=== PATIENT | male | born 1955 | race Two or more races ===

== ENCOUNTER 2016-08-26 08:12 | Inpatient (IN) | payer OTHER ==
--- NOTE | 2016-08-22 15:08 | HP ---
HISTORY AND PHYSICAL: DATE OF OFFICE VISIT: 08/22/16 DATE OF SURGERY: 08/26/16 SURGEON: Abi Knox MD. PROCEDURE: Right total hip arthroplasty. CHIEF COMPLAINT: Right hip pain. HISTORY OF PRESENT ILLNESS: Mr. Ley is a 61-year-old gentleman with complaints of right hip larry n. He has failed conservative management and has elected to proceed with a right total hip arthropl asty, which is scheduled for 08/26/[address] Knox. PAST MEDICAL HISTORY: 1. Right lower extremity cellulitis. 2. Bleeding gastric ulcers. 3. Hypertension. 4. Coronary artery disease. 5. High cholesterol. 6. Mcdowell's esophagus. 7. Peripheral vascular disease. PAST SURGICAL HISTORY: Stent placement. CURRENT MEDICATIONS: 1. Doxycycline 100 mg twice daily. 2. Nome 1-2 tabs twice a day as needed.. 3. Nystatin/triamcinolone ointment twice daily. 4. Toprol XL 25 mg once a day. 5. Multivitamin once a day. 6. Lipitor 40 mg q.h.s. 7. Tylenol PM q.h.s. 8. Tylenol 325 mg as needed twice a day. 9. Ferrous sulfate 324 mg once a day. 10. Flonase 50 micrograms/ACT one internasal puff daily. 11. Lisinopril 10 mg once a day. 12. Hydrochlorothiazide 25 mg once a day. 13. Omeprazole 40 mg once a day. 14. Glucosamine chondroitin 500 complex once a day. 15. Sucralfate 1 gm 4x a day. ALLERGIES: None. FAMILY HISTORY: Diabetes; heart disease; gastric, colon and breast cancer; melanoma. SOCIAL HISTORY: This is a 61-year-old gentleman who lives with the sister. He does not smoke. He denies use of drugs or alcohol. REVIEW OF SYSTEMS: A complete 14-point review of systems is reviewed with the patient and all is ne gative or noncontributory. PHYSICAL EXAMINATION GENERAL: He is well developed, well nourished, in no acute distress. VITAL SIGNS: He stands 5 feet and 8 inches tall, weighs 163 pounds. His blood pressure is 121/72, heart rate 77. HEENT: Normocephalic, atraumatic. NECK: Supple. No palpable lymph nodes. Trachea is midline. CARDIO: Regular rate and rhythm. Strong S1 and S2. PULMONARY: Lungs are clear to auscultation bilaterally. ABDOMEN: Soft, nontender, nondistended. NEUROLOGIC: Cranial nerves II through XII are intact. He is alert and oriented x3. MUSCULOSKELETAL: Right lower extremity, the skin is intact. He has a limited range of motion with internal and external rotation of his right hip. Lower extremity muscle group strengths were intact at 5/5. He has 2+ dorsalis pedis pulses. There is some redness of his right lower leg, which was not extend past the knee. There is no swelling, drainage, or warmth. He walks with an antalgic typ e gait favoring his right hip. ASSESSMENT AND PLAN: Mr. Ley is a 61-year-old gentleman with complaints of right hip pain. He has failed conservative management and has elected to proceed with a right total hip arthroplasty, which is scheduled for 08/26/[address] Knox discussed the risks and benefits of the s urgery at today's visit and all of his questions were answered. Percocet was sent to his pharmacy f or postoperative pain control. DVT prophylaxis has not been determined. We will discuss this with hospital medicine on the day of surgery, since he has a history of bleeding gastric ulcers which req uired hospitalization a year and half ago, with blood transfusion. So, prior to study any Coumadin we will first consult then. We will have him follow up with Dr. Knox in clinic 2 weeks after the s urgery. BASIL ROJAS [id number]/[facility] #: [id number]
[~2016-08-26 08:12] MED LIST: Buffered Lidocaine 1% SYR 3ML* 3 ML/SYR SYRINGE INTRADERM ONE; Famotidine IV* 10 MG/ML 2 ML (20 mg) IV ONE
[2016-08-26] MEDS ORDERED: ceFAZolin 2 GM PREMIX(*) 2 GM/50 ML BAG IVPB ONE (08:14)
[2016-08-26] MEDS ORDERED: Famotidine IV* 10 MG/ML 2 ML (20 mg) ONE (08:14)
[2016-08-26] MEDS ORDERED: fentaNYL* 50 MCG/ML 2 ML VIAL (100 MCG VIAL) ONE (09:05)
[2016-08-26] MEDS ORDERED: Midazolam* 1 MG/ML 5 ML VIAL (5 MG) ONE (09:05)
[2016-08-26] MEDS ORDERED: Morphine PF AMP (0.5MG/ML)* 5 MG/10 ML AMP ONE (11:14)
[2016-08-26] MEDS ORDERED: KETAMINE HCL* 50 MG/ML 10 ML VIAL ONE (11:21)
[2016-08-26] MEDS ORDERED: Lidocaine 2% PF * 5 ML VIAL ONE (11:39)
[2016-08-26] MEDS ORDERED: diPHENhydraMINE IV* 50 MG/ML 1 ml VIAL (BENADRYL) ONE (11:39)
[2016-08-26] MEDS ORDERED: Ketorolac INJ* 30 MG/ML 1 ML VIAL ONE (11:39)
[2016-08-26] MEDS ORDERED: Ondansetron INJ* 2 MG/ML VIAL ONE (11:39)
[2016-08-26] MEDS ORDERED: Propofol* 10 MG/ML 20 ML BTL IV PUSH ONE (11:39)
[2016-08-26] MEDS ORDERED: Dexamethasone IV* 4 MG/ML 1 ML (4 MG) ONE (11:39)
[2016-08-26] MEDS ORDERED: Midazolam* 1 MG/ML 2 ML VIAL (2 MG) ONE ×3 (11:48→12:06)
[2016-08-26] MEDS ORDERED: diPHENhydraMINE IV* 50 MG/ML 1 ml VIAL (BENADRYL) IV PRN (14:17)
[2016-08-26] MEDS ORDERED: Morphine INJ* 2 MG/ML 1 ML SYRINGE IV PRN (14:17)
[2016-08-26] MEDS ORDERED: Ondansetron TAB* 4 MG PO PRN (14:17)
[2016-08-26] MEDS ORDERED: Acetaminophen TAB* 325 MG PO PRN ×2 (14:17→14:26)
[2016-08-26] MEDS ORDERED: Bisacodyl SUPP* 10 MG SUPP PR PRN (14:17)
[2016-08-26] MEDS ORDERED: Polyethylene Glycol 3350* 17 GM PACKET PO PRN (14:17)
[2016-08-26] MEDS ORDERED: Magnesium Hydroxide LIQ* 30 ML UDC PO PRN (14:17)
[2016-08-26] MEDS ORDERED: oxyCODONE/Acetamin 5/325 MG* TAB PO PRN ×3 (14:17→14:36)
[2016-08-26] MEDS ORDERED: oxyCODONE TAB* 5 MG TAB PO PRN (14:17)
[2016-08-26] MEDS ORDERED: HYDROmorphone* 1 MG/ML 1 ML SYR IV PRN (14:26)
[2016-08-26] MEDS ORDERED: DiMENhydriNATE IV* 50 MG/ML VIAL IV PUSH PRN (14:26)
[2016-08-26] MEDS ORDERED: Ondansetron INJ* 2 MG/ML VIAL IV PRN (14:31)
[2016-08-26] MEDS ORDERED: Naloxone* 0.4 MG/ML 1 ML VIAL IV PRN (14:31)
[2016-08-26] MEDS ORDERED: Nalbuphine* 20 MG/ML 1 ML VIAL IV PRN (14:31)
--- NOTE | 2016-08-26 14:55 | RAD ---
INDICATION: Status post total right hip replacement surgery. COMPARISON: Comparison is made with a prior x-ray study of the right hip from July 24, 2016. TECHNIQUE: An AP view of the pelvis and frontal and lateral images of the right hip were obtained. FINDINGS: The patient is status post total right hip replacement surgery. The bones and prostheses are in normal alignment. There is a small amount of air within the surrounding soft tissues consistent with the patient's recent surgery. There is a catheter within the urinary bladder. There is moderate osteoarthritic change in the left hip. IMPRESSION: STATUS POST TOTAL RIGHT HIP REPLACEMENT SURGERY.
[2016-08-26] MEDS ORDERED: ceFAZolin 1 GM in Dextrose (*) 1 GM/50 ML BAG IVPB SCH ×2 (15:00→18:00)
--- NOTE | 2016-08-26 16:25 | RAD ---
Indication: RIGHT total hip replacement. Comparison: June 27, 2016 Technique: LEFT lateral decubitus crosstable AP RIGHT hip 1320 hours. Report: Prosthetic acetabular component and femoral test fit/reamer component in place. No periprosthetic fracture evident. Subcutaneous emphysema. IMPRESSION: Intraoperative control film.
[2016-08-26] MEDS ORDERED: Warfarin TAB(*) 6 MG PO SCH (17:00)
[2016-08-26] MEDS: Sucralfate TAB* 1 GM PO SCH ×2 (17:20→20:57)
[2016-08-26] MEDS: ceFAZolin 1 GM in Dextrose (*) 1 GM/50 ML BAG IVPB SCH (18:11)
[2016-08-26] MEDS: Docusate CAP* 100 MG PO SCH (19:33)
[2016-08-26] MEDS: Ibuprofen TAB* 600 MG PO SCH (19:33)
[2016-08-26] MEDS: Atorvastatin* 40 MG TAB PO SCH (19:33)
[2016-08-26] MEDS: DOXYcycline CAP(*) 100 MG PO SCH (19:34)
--- NOTE | 2016-08-26 20:22 | CONS ---
CONSULTATION REPORT: DATE OF CONSULT: 08/26/16 ATTENDING PHYSICIAN WHILE IN THE HOSPITAL: Dr. Lake Mackay (report is being dictated by Bryce Garcia NP). PRIMARY CARE PROVIDER: Dr. Edgard Banks. REQUESTING PHYSICIAN FOR CONSULTATION: Dr. Knox. REASON FOR MEDICAL CONSULTATION: Evaluation and medical management of comorbid medical conditions. HISTORY OF PRESENT ILLNESS: I refer you to Dr. Knox's H and P for further details. In short, Mr. Ley is a 61-year-old male patient. He has a history of peptic ulcer disease, hypertension, history of hyperlipidemia, anxiety, NE, Mcdowell's esophagus, and peripheral vascular disease and recent history of a presumed bleeding ulcer back in October of this year, also found to have a Nadja albicans infection on the gastric ulcer and which he follows with Dr. Dennis for. He comes in to orthopedic services today because he has been complaining for sometime some right hip pain, it is becoming more severe. He has been having difficulty walking and sits in a wheelchair most of the time. He has been failing conservative managements, so it was felt that he would benefit from a total hip replacement. He underwent the procedure today and he was evaluated in the PACU. The patient says he feels drowsy only. He denies specifically having any chest pain or shortness of breath. He denies any abdominal discomfort. He denies having any recent black or tarry stools. He denies having any abdominal discomfort and he says that he feels drowsy, this is his biggest complaint. He denies having any pain in his hips. He carries a significant past medical history and because of this, we are asked to evaluate in consult. PAST MEDICAL HISTORY: Significant for: 1. Peptic ulcer disease. 2. Peripheral vascular disease. 3. Hypertension. 4. CAD. 5. NE. 6. Hyperlipidemia. 7. Osteoarthritis. 8. Mcdowell's esophagus. PAST SURGICAL HISTORY: He has had cardiac catheterization with 2 stents. HOME MEDICATIONS: According to the preop list include: 1. Percocet 1 to 2 tablets every 4 hours as needed. 2. Carafate 1 g p.o. q.i.d. 3. Omeprazole 40 mg daily. 4. Nystatin/triamcinolone cream one application topically b.i.d. 5. Multivitamin one tablet daily. 6. Metoprolol XL 25 mg daily. 7. Lisinopril 10 mg daily. 8. Hydrochlorothiazide 25 mg daily. 9. Glucosamine 2 tablets p.o. b.i.d. 10. Flonase one spray both nares daily. 11. Ferrous sulfate 325 mg p.o. daily. 12. Doxycycline 100 mg p.o. b.i.d. 13. Tylenol PM 2 tablets p.o. at bedtime. 14. Lipitor 40 mg at bedtime. 15. Tylenol 2 tablets p.o. b.i.d. as needed. ALLERGIES TO MEDICATIONS: No known drug allergies. FAMILY HISTORY: Both his parents were diabetics, both had hypertension. SOCIAL HISTORY: He does not smoke. He does not drink. He lives with his sister. Surrogate decision maker is his sister. REVIEW OF SYSTEMS: There is no documented fever. He denied having any significant weight change. There is no double vision. He denies having any ear discharge. He denies having any rhinorrhea. There is no sore throat. No thyroid enlargement. He denies having any chest pain. There is no orthopnea. There is no nocturnal dyspnea. He denies having any abdominal discomfort. He denies having any nausea or vomiting. He denies any dysuria. No frequency. There was no loss of consciousness. No pruritus. No skin ulcerations. Review of 14 systems completed, all others negative. PHYSICAL EXAM: Vital Signs: Blood pressure 107/62, pulse 52, respirations 18, O2 saturation 99% on 3 L, temperature 97.2. Generally, at this time, Mr. Ley is a 61-year-old male patient. He does not appear to be in any acute distress. He is awake and he is alert. He is just drowsy but he follows commands appropriately. HEENT: Head is atraumatic, normocephalic. Eyes: Pupils are reactive to light. Sclerae are anicteric, not pale. Neck was supple. Throat; oral mucosa appeared to be moist. No oropharyngeal erythema. Heart: Sounds S1 and S2. Regular rate and rhythm. He is bradycardic around 58. No murmurs, rubs, or gallops. Lungs: Clear to auscultation. No wheezes, rales, or rhonchi. Abdomen: Soft, flat, and nontender. Bowel sounds were present. Extremities: Pulses were 2+ throughout. Distal CSM checks are intact to bilateral lower extremities. He is in a hip abductor pillow. Neurologically , he is awake and he is alert. He does follow commands. He does fall asleep easily but awakens and follows commands appropriately. Case Picker are equal. Tongue is midline. No gross focal deficits. Skin is intact with the exception he has got incision to the right hip which is covered with ABD dressings, clean , dry, and intact. DIAGNOSTIC STUDIES/LAB DATA: Labs preoperatively revealed WBC 5.8, RBC of 5.29 , hemoglobin 16.5, hematocrit of 48, platelet count 157. INR 0.90. Sodium of 138, potassium 3.7, chloride 99, bicarb 31, BUN 17, creatinine 0.91, glucose 93. Urine preop was negative. Urine culture was negative preop. He had a preop stress test according to Dr. Mckeon's notes which showed no evidence of ischemia. There was a preop echo shows EF of 55-60%. Preop EKG shows a normal sinus rhythm with a PAC. No ST elevation or T-wave inversions. He does appear to have intraventricular conduction delay. He also had a chest x -ray which showed no active cardiopulmonary disease. He had an EGD done in December which showed a healed ulcer. Old medical records are reviewed. ASSESSMENT AND PLAN: Mr. Ley is a 61-year-old male patient coming into the orthopedic services today for an elective right total hip. My recommendations at this point are: 1. Status post right total hip, I will defer the management to Dr. Knox and her team. 2. Peptic ulcer disease with recent gastric ulcer. Again, there is concern because the patient is going to be going on Coumadin for short period of time postoperatively to prevent DVTs. However, because the ulcer has healed, I believe we could proceed with caution using the Coumadin to prevent DVTs. We need to monitor him closely. Should there be any signs of melena or concerns for bleeding then obviously we would need to reevaluate the ulcer but he has been stable now since December. I will continue with Carafate and his PPI therapy. I do have a call placed to his [employer] to inform them because I think the risk of taking the Coumadin is lower than the risk of not taking it because I think he would be a much higher risk for having a DVT and PE postoperatively from the surgery like this, so I think we should proceed with the warfarin with careful monitoring on the patient. 3. Hypertension. His blood pressures here in the low 100 systolically, so I will hold his meds with exception of his beta-kush, I did write a hold parameters. 4. Coronary artery disease. Continue the statin and beta-kush. 5. History of hyperlipidemia. Continue statin therapy. 6. History of arthritis. Follow up with primary. 7. History of Mcdowell's esophagus. Continue his current medical regimen. He is on Carafate and PPI. 8. Peripheral vascular disease. Continue statin therapy. 9. Code status. Full code. 10. Fluids, electrolytes and nutrition. I would recommend a heart healthy diet. TIME SPENT: Time spent on this consult was approximately 60 minutes, greater than half time spent with [id number] with the patient obtaining my history and physical, the other half of the time spent going over the plan of care with the patient and implementing the plan of care. I discussed the plan of care with my attending, Dr. Mackay who is in agreement. BRYCE GARCIA NP CC: Dr. Edgard Banks; Dr. Knox * [id number]/[facility] #: [id number] FRANCY
[2016-08-26] MEDS ORDERED: TRIAMCINOLONE TOPICAL SCH (21:00)
[2016-08-26] MEDS ORDERED: NYSTATIN TOPICAL SCH (21:00)
[2016-08-27] MEDS: Triamcinolone 0.025% OINT * 15 GM TUBE TOPICAL SCH ×3 (00:08→19:22)
[2016-08-27] MEDS: Ibuprofen TAB* 600 MG PO SCH ×3 (01:44→13:44)
[2016-08-27] MEDS: ceFAZolin 1 GM in Dextrose (*) 1 GM/50 ML BAG IVPB SCH ×2 (02:01→09:46)
[2016-08-27] MEDS: Sucralfate TAB* 1 GM PO SCH ×4 (05:47→21:56)
[2016-08-27 05:59] LABS: Hematocrit 30 % (42-52); Hemoglobin 10.6 g/dl (14.0-18.0)
[2016-08-27 06:23] LABS: BUN/Creatinine Ratio 18.4 (8-20); Calcium 8.1 mg/dL (8.6-10.3); EGFR African American 93.8 (>60); EGFR Non-African American 72.9 (>60); Potassium 3.6 mmol/L (3.5-5.0)
[2016-08-27] MEDS ORDERED: Lactated Ringers 500 ml BAG* 500 ML IV ONE (06:28)
--- NOTE | 2016-08-27 07:38 | PN ---
Progress Note - Progress Note SOAP: Subjective: Pt. doing well, minimal pain. Low BP overnight. Objective: RLE - thigh soft, dressing c/d/i. distally +df/pf, full sens lt, 2+ dp pulse. Vital Signs: Temp Pulse Resp BP Pulse Ox 98.4 F 70 16 86/46 95 08/27/16 03:32 08/27/16 03:32 08/27/16 03:32 08/27/16 03:32 08/27/16 03:32 Laboratory Results - last 24 hr 08/27/16 08/27/16 08/27/16 05:28 05:28 05:28 Hgb 10.6 L Hct 30 L INR (Anticoag Therapy) 1.09 Sodium 133 Potassium 3.6 Chloride 99 L Carbon Dioxide 29 Anion Gap 5 BUN 19 Creatinine 1.03 Est GFR ( Amer) 93.8 Est GFR (Non-Af Amer) 72.9 BUN/Creatinine Ratio 18.4 Glucose 114 H Calcium 8.1 L Assessment: 61 yo M pod 1 s/p RTHA Plan: wbat with post hip precautions pt/ot 6 mg coumadin with lovenox plan home vs snf
[2016-08-27] MEDS ORDERED: Lactated Ringers 250 ml Bag* 250 ML IV SCH (07:45)
[2016-08-27] MEDS: Metoprolol Succinate XL TAB* 25 MG PO SCH (08:15)
[2016-08-27] MEDS: oxyCODONE/Acetamin 5/325 MG* TAB PO PRN ×3 (08:19→21:56)
--- NOTE | 2016-08-27 08:38 | OP ---
OPERATIVE REPORT: DATE OF OPERATION: 08/26/16 DATE OF : 51 SURGEON: Abi Knox MD SUPERVISOR WATER SOFTENER SERVICE: BASIL Turcios This obstetric assistant was used throughout the entire procedure including preparation, draping, retraction, manipulation of the leg, and wound closure. ANESTHESIOLOGIST: Naima Becker MD ANESTHESIA: Spinal. 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 OPERATIVE PROCEDURE: Right total hip arthroplasty. COMPLICATIONS: None. ESTIMATED BLOOD LOSS: 300 cc. SPECIMEN: Femoral head and acetabular reaming, sent to pathology. IMPLANTS USED: This is uncemented Fanny total hip hardware. For the acetabulum, a Trident Tritan ium 56E with 30 mm bone screw. For the liner, an MDM cementless liner 42E. For the stem, an Accola de TMZF 3.5 132-degree neck. For the head, a 28, +0 Biolox delta ceramic V40 femoral head. For the insert, a hinduism MDM X3 28/48/42E. BRIEF HISTORY/INDICATIONS: Mr. Ley is a 61-year-old gentleman with years of increasingly severe right hip pain. He failed conservative treatment activity modification, pain medication, antiinfla mmatories, physical therapy, and ambulatory assistive devices. His radiographs showed severe end-st age arthritis with bone-on- bone contact and deformation of the femoral head consistent with avascul ar necrosis and subchondral collapse. He elected to undergo right total hip arthroplasty due to con tinued pain and decreased quality of life. Informed consent was obtained from the patient. He understood the risks of the surgery included but were not limited to bleeding, infection, damage to nearby structures, continued pain, need for furt her surgery, intraoperative fracture, nerve palsy, hardware failure or loosening, dislocation, leg l ength discrepancy, stroke, heart attack, blood clot, and . He wished to proceed. INTRAOPERATIVE FINDINGS: Intraoperatively, the patient was noted to have severe end-stage arthritis with deformation of the femoral head and loss of the normal bony anatomy. He had complete loss of cartilage of the femoral head and acetabulum. DESCRIPTION OF PROCEDURE: Mr. Ley was identified in the preanesthesia unit. His right lower ext remity was marked as the correct operative side. Informed consent was signed and placed in the [facility]. The patient was taken to the operating room and placed under spinal anesthesia without difficult y. A Tamayo catheter was placed. The patient was placed in the left lateral decubitus position on t he Peg board. Right lower extremity was prepped and draped in the usual sterile fashion. Preop time -out was made to correctly identify the patient, side, and site. Appropriate perioperative antibioti cs were given within 1 hour of incision. A 14 cm posterior hip incision was made and carried down to the lateral fascial layer. The lateral fascial layer was then incised in line with the skin incision. A Charnley retractor was placed. The piriformis and conjoined tendons were identified. These were elevated off the posterolateral femur using electrocautery and tagged with two #5 Ethibond's. Next, electrocautery was used to make a andard posterolateral capsular flap and this was also tagged with two #5 Ethibond's. The hip was carefully dislocated. Deformity of the femoral head due to subchondral collapse and harman scular necrosis was noted. Lesser troch to the center of the femoral head was estimated at 55 mm. An oscillating saw was used to make the appropriate femoral neck cut and the the femoral head was se nt to pathology. After appropriate placement of retractors, the acetabulum was well visualized. Long-handled knife wa s used to remove any remaining labrum from the acetabular rim. The acetabulum was sequentially reame d up to a size 55. A bleeding bone bed was obtained. A size 56E Trident Tritanium acetabular cup w as chosen and impacted into the acetabulum. There was good stability as well as appropriate antever derek and abduction angle. A 130 mm screw was placed in the superoposterior quadrant for extra stability. An MDM cement with l iner 42E was chosen and impacted into the acetabulum. Stability of the liner was checked and rechec ked and noted to be stable. Attention was next turned to preparation of the proximal femur. A canal finder was used to enter th e proximal femur. The proximal femur was then sequentially broached up to a size 3.5. Size 3.5 bro ach had an excellent stability and appropriate anteversion. A trial 132-degree neck as well as a 28 , +0 head trial with the appropriate insert was chosen. The hip was reduced and taken through a ran ge of motion. The hip was stable in all positions. Lesser troch to the center of the femoral head measured 60 mm. This was deemed to be appropriate fo r leg length and soft tissue tension. The hip was carefully dislocated. All trials were carefully removed. Final stem chosen for the fem ur was an Accolade TMZF size 3.5 with 132-degree neck. This was impacted into the femur without dif ficulty. There was good stability. A 28, +0 Biolox delta ceramic femoral head as well as a 28/48/4 2E hinduism insert was chosen as the final implant. These were impacted onto the femoral neck wi thout difficulty. The hip was reduced and taken through a range of motion. The hip was stable in all positions. The hip was copiously irrigated with sterile saline. Previously tagged capsule and tendons were boris pproximated to the posterolateral femur through 2 trochanteric drill holes. The hip was once again copiously irrigated. Lateral fascia was reapproximated using an interrupted #1 Vicryl's. The rest of the incision was closed in a layered fashion using 0 and 2-0 Vicryl's. Skin was closed using run stephanie 3-0 Monocryl suture and Dermabond. Sterile Adaptic, 4x4s, and paper tapes were used to cover t he incision. The patient's anesthesia was reversed without difficulty. He was taken to the PACU in stable condition. Intended weightbearing will be weightbearing as tolerated with posterior hip pre cautions. Intended DVTs prophylaxis will be Coumadin. [id number]/[facility] #: [id number]
[2016-08-27] MEDS ORDERED: Hydrochlorothiazide TAB* 25 MG PO SCH (09:00)
[2016-08-27] MEDS ORDERED: Lisinopril TAB* 10 MG PO SCH (09:00)
[2016-08-27] MEDS ORDERED: Metoprolol Succinate XL TAB* 25 MG PO SCH (09:00)
[2016-08-27] MEDS: Multivitamins/Minerals TAB PO SCH (09:43)
[2016-08-27] MEDS: DOXYcycline CAP(*) 100 MG PO SCH ×2 (09:43→19:20)
[2016-08-27] MEDS: Omeprazole CAP* 20 MG PO SCH (09:44)
[2016-08-27] MEDS: Ferrous Sulfate TAB* 325 MG PO SCH (09:44)
[2016-08-27] MEDS: Docusate CAP* 100 MG PO SCH ×2 (09:45→19:20)
[2016-08-27] MEDS: Fluticasone NASAL SPRAY 50MCG* 16 gm SPRAY BTL BOTH NARES SCH (11:15)
[2016-08-27] MEDS: Nystatin CREAM* 30 GM TOPICAL SCH ×2 (11:18→19:22)
[2016-08-27] MEDS: Enoxaparin(*) 30 MG/0.3 ML SYR SUBCUT SCH (11:47)
--- NOTE | 2016-08-27 16:59 | PN ---
Subjective Date of Service: 08/27/16 Interval History: Patient seen and examined at bedside. Pt states that he is feeling well. Reports that pain is better controlled this afternoon. Denies fever, chills, shortness of breath, chest discomfort, N/V/D. Family History: Unchanged from Admission Social History: Unchanged from Admission Past Medical History: Unchanged from Admission Objective Active Medications: Acetaminophen (Tylenol Tab*) 650 mg PO Q4H PRN Reason: PAIN OR TEMPERATURE Atorvastatin Calcium (Lipitor*) 40 mg PO BEDTIME LAUREN Bisacodyl (Dulcolax Supp*) 10 mg [place] DAILY PRN Reason: constipation Diphenhydramine HCl (Benadryl Iv*) 12.5 mg IV Q6H PRN Reason: PRURITIS Docusate Sodium (Colace Cap*) 100 mg PO BID LAUREN Doxycycline Hyclate (Vibramycin Cap(*)) 100 mg PO BID LAUREN Enoxaparin Sodium (Lovenox(*)) 30 mg SUBCUT Q24H LAUREN Ferrous Sulfate (Ferrous Sulfate Tab*) 325 mg PO DAILY [facility] Fluticasone Propionate (Flonase Nasal [place] 50mcg*) 1 spray BOTH NARES DAILY [facility] Lactated Ringer's (Lactated Ringers 1000 Ml Bag*) 1,000 mls @ 100 mls/hr IV PER RATE LAUREN Lactulose (Lactulose*) 30 ml PO Q6H PRN Reason: constipation Magnesium Hydroxide (Milk Of Magnesia Liq*) 30 ml PO Q6H PRN Reason: constipation Metoprolol Succinate (Toprol Xl Tab*) 25 mg PO DAILY [facility] Morphine Sulfate (Morphine Inj (Syringe)*) 2 mg IV Q2H PRN Reason: PAIN Multivitamins/Minerals (Theragran/Minerals Tab*) 1 tab PO DAILY [facility] Nystatin (Nystatin Cream*) 1 applic TOPICAL BID [facility] Omeprazole (Prilosec Cap*) 40 mg PO DAILY [facility] Ondansetron HCl (Zofran Tab*) 4 mg PO Q6H PRN Reason: NAUSEA Oxycodone HCl (Roxycodone Tab*) 10 mg PO Q4H PRN Reason: SEVERE PAIN Oxycodone/Acetaminophen (Percocet 5/325 Tab*) 1 tab PO Q3H PRN Reason: PAIN - MODERATE Oxycodone/Acetaminophen (Percocet 5/325 Tab*) 2 tab PO Q3H PRN Reason: PAIN - MODERATE Pharmacy Profile Note (Coumadin Daily Reminder*) 1 note FOLLOW UP 1700 [facility] Polyethylene Glycol/Electrolytes (Miralax*) 17 gm PO DAILY PRN Reason: Constipation Sucralfate (Carafate*) 1 gm PO 0600,1100,1600,2100 [facility] Triamcinolone Acetonide (Triamcinolone 0.025% Oint *) 1 applic TOPICAL BID [facility] Warfarin Sodium (Coumadin Tab(*)) 6 mg PO ONCE@1700 ONE Vital Signs 08/26/16 08/26/16 08/26/16 17:59 19:39 19:58 Temperature 98.2 F 99.2 F Pulse Rate 70 71 Respiratory 14 15 15 Rate Blood Pressure 99/62 91/59 (mmHg) O2 Sat by Pulse 97 97 Oximetry 08/26/16 08/26/16 08/27/16 22:12 23:30 02:08 Temperature 100.0 F 98.2 F Pulse Rate 85 88 Respiratory 16 16 Rate Blood Pressure 97/57 80/48 82/56 (mmHg) O2 Sat by Pulse 96 95 Oximetry 08/27/16 08/27/16 08/27/16 02:13 03:32 07:15 Temperature 98.4 F Pulse Rate 70 Respiratory 16 16 Rate Blood Pressure 86/46 (mmHg) O2 Sat by Pulse 97 95 94 Oximetry 08/27/16 08/27/16 08/27/16 07:19 07:40 08:19 Temperature 98.3 F Pulse Rate 72 75 Respiratory 25 20 16 Rate Blood Pressure 87/50 86/48 (mmHg) O2 Sat by Pulse 94 Oximetry 08/27/16 08/27/16 08/27/16 10:19 11:31 14:07 Temperature 97.9 F Pulse Rate 75 Respiratory 18 19 16 Rate Blood Pressure 98/56 (mmHg) O2 Sat by Pulse 98 Oximetry 08/27/16 08/27/16 15:37 16:00 Temperature 98.1 F Pulse Rate 90 Respiratory 17 Rate Blood Pressure 90/56 (mmHg) O2 Sat by Pulse 96 96 Oximetry Oxygen Devices in Use Now: None Appearance: NAD, laying in bed Eyes: No Scleral Icterus, PERRLA Ears/Nose/Mouth/Throat: Mucous Membranes Moist Respiratory: Symmetrical Chest Expansion and Respiratory Effort, Clear to Auscultation Cardiovascular: NL Sounds; No Murmurs; No JVD, RRR Abdominal: NL Sounds; No Tenderness; No Distention Extremities: No Edema Skin: No Rash or Ulcers Neurological: Alert and Oriented x 3, NL Muscle Strength and Tone Lines/Tubes/Other Access: Clean, Dry and Intact Peripheral IV - site benign Nutrition: Taking PO's Result Diagrams: 08/27/16 05:28 08/27/16 05:28 Assess/Plan/Problems-Billing Assessment: Mr. Ley is a 61 yo male with PMH significant for PUD, PVD, HTN, CAD, [place], HLD Mcdowell's esophagus, and osteoarthritis who presented to the hospital for an elective right total hip replacement with Dr. Knox on 08/26/16. - Patient Problems (1) Status post total hip replacement, right Code(s): Z96.641 - PRESENCE OF RIGHT ARTIFICIAL HIP JOINT SNOMED Code(s): 751153868702 Comment: - POD #1, management per Orthopedics - Trend HH - Continue pain management, bowel regime and PT/OT (2) PUD (peptic ulcer disease) Code(s): K27.9 - PEPTIC ULC, SITE UNSP, UNSP AC OR CHR, W/O HEMOR OR PERF SNOMED Code(s): 78078170 Comment: - Monitor for signs of bleeding - Continue Carafate and PPI (3) HTN (hypertension) Code(s): I10 - ESSENTIAL (PRIMARY) HYPERTENSION SNOMED Code(s): 45609611 Comment: - Hypotensive, SBP 90's - Continue Metoprolol with hold parameters - Continue to hole Lisinopril and HCTZ (4) HLD (hyperlipidemia) Code(s): E78.5 - HYPERLIPIDEMIA, UNSPECIFIED SNOMED Code(s): 42929750 Comment: - Continue statin (5) Mcdowell's esophagus Code(s): K22.70 - MCDOWELL'S ESOPHAGUS WITHOUT DYSPLASIA SNOMED Code(s): 537567043 Comment: - Continue Carafate and PPI (6) PVD (peripheral vascular disease) Code(s): I73.9 - PERIPHERAL VASCULAR DISEASE, UNSPECIFIED SNOMED Code(s): 455262447 Comment: - Continue statin (7) CAD (coronary artery disease) Code(s): I25.10 - ATHSCL HEART DISEASE OF [place] CORONARY ARTERY W/O ANG PCTRS SNOMED Code(s): 43503983 Comment: - Continue statin and Metoprolol (8) DVT prophylaxis Code(s): XBS6925 - SNOMED Code(s): 243539654 Comment: - Lovenox bridge to Warfarin (9) Full code status Code(s): Z78.9 - OTHER SPECIFIED HEALTH STATUS SNOMED Code(s): 948068752 Status and Disposition: Inpatient. Disposition per Orthopedics.
[2016-08-27] MEDS ORDERED: Warfarin TAB(*) 6 MG PO ONE (17:00)
[2016-08-27] MEDS: Atorvastatin* 40 MG TAB PO SCH (19:20)
[2016-08-28] MEDS: oxyCODONE/Acetamin 5/325 MG* TAB PO PRN ×4 (03:54→16:39)
[2016-08-28 05:24] LABS: Hematocrit 28 % (42-52); Hemoglobin 9.6 g/dl (14.0-18.0)
[2016-08-28 05:26] LABS: Comments Flag Yes
[2016-08-28] MEDS: Sucralfate TAB* 1 GM PO SCH ×4 (05:37→20:57)
--- NOTE | 2016-08-28 08:28 | PN ---
Progress Note - Progress Note SOAP: Subjective: [61 yo M pod 2 s/p RTHA. No complaints overnight, VSS, afebrile. Objective: [General- Well appearing, NAD, resting comfortably MSK- I C/D/I, minimal dried blood drainage on gauze, + DF/PF, minimal R LE swelling. ] Vital Signs Temp 98.6 F 08/28/16 07:17 Pulse 92 08/28/16 08:02 Resp 18 08/28/16 08:02 BP 118/62 08/28/16 08:02 Pulse Ox 95 08/28/16 07:17 Intake & Output 08/27/16 08/28/16 08/28/16 18:59 06:59 18:59 Intake Total 637 1990 205 Output Total 1474 1350 Balance -837 640 205 Intake: IV Fluids 1440 205 LR 1440 205 IVPB 62 cefazolin 62 Oral 575 550 Output: Urine 674 1350 Tam[place]o 800 Other: Estimated Void Medium Medium # Voids 1 1 Laboratory Results - last 24 hr 08/28/16 08/28/16 05:13 05:13 Hgb 9.6 L Hct 28 L INR (Anticoag Therapy) 1.27 H Assessment: [61 yo M pod 2 s/p RTHA] Plan: - Likely D/C to rehab tomorrow - Continue PT OT - Lovenox, coumadin for DVT INR 1.27, 8mg coumadin tonight. [] Active Medications Generic Name Dose Route Start Last Admin Trade Name Freq PRN Reason Stop Dose Admin Acetaminophen 650 mg 08/26/16 14:17 Tylenol Tab* PO Q4H PRN PAIN OR TEMPERATURE Atorvastatin Calcium 40 mg 08/26/16 21:00 08/27/16 19:20 Lipitor* PO 40 mg BEDTIME LAUREN Administration Bisacodyl 10 mg 08/26/16 14:17 Dulcolax Supp* [place] DAILY PRN constipation Diphenhydramine HCl 12.5 mg 08/26/16 14:17 Benadryl Iv* IV Q6H PRN PRURITIS Docusate Sodium 100 mg 08/26/16 21:00 08/27/16 19:20 Colace Cap* PO 100 mg BID LAUREN Administration Doxycycline Hyclate 100 mg 08/26/16 21:00 08/27/16 19:20 Vibramycin Cap(*) PO 100 mg BID LAUREN Administration Enoxaparin Sodium 30 mg 08/27/16 12:00 08/27/16 11:47 Lovenox(*) SUBCUT 30 mg Q24H LAUREN Administration Ferrous Sulfate 325 mg 08/27/16 09:00 08/27/16 09:44 Ferrous Sulfate Tab* PO 325 mg DAILY LAUREN Administration Fluticasone Propionate 1 spray 08/27/16 09:00 08/27/16 11:15 Flonase Nasal [place] 50mcg* BOTH NARES 1 spray DAILY LAUREN Administration Lactated Ringer's 1,000 mls @ 100 mls/hr 08/27/16 18:00 08/28/16 05:36 Lactated Ringers 1000 Ml Bag* IV 100 mls/hr PER RATE LAUREN Administration Lactulose 30 ml 08/26/16 14:17 Lactulose* PO Q6H PRN constipation Magnesium Hydroxide 30 ml 08/26/16 14:17 Milk Of Magnesia Liq* PO Q6H PRN constipation Metoprolol Succinate 25 mg 08/27/16 09:00 08/27/16 08:15 Toprol Xl Tab* PO Not Given DAILY [facility] Morphine Sulfate 2 mg 08/26/16 14:17 Morphine Inj (Syringe)* IV Q2H PRN PAIN Multivitamins/Minerals 1 tab 08/27/16 09:00 08/27/16 09:43 Theragran/Minerals Tab* PO 1 tab DAILY LAUREN Administration Nystatin 1 applic 08/26/16 22:08 08/27/16 19:22 Nystatin Cream* TOPICAL 1 applic BID [facility] Administration Omeprazole 40 mg 08/27/16 09:00 08/27/16 09:44 Prilosec Cap* PO 40 mg DAILY LAUREN Administration Ondansetron HCl 4 mg 08/26/16 14:17 Zofran Tab* PO Q6H PRN NAUSEA Oxycodone HCl 10 mg 08/26/16 14:17 08/27/16 15:37 Roxycodone Tab* PO 10 mg Q4H PRN Administration SEVERE PAIN Oxycodone/Acetaminophen 1 tab 08/26/16 14:17 08/28/16 03:54 Percocet 5/325 Tab* PO 1 tab Q3H PRN Administration PAIN - MODERATE Oxycodone/Acetaminophen 2 tab 08/26/16 14:17 Percocet 5/325 Tab* PO Q3H PRN PAIN - MODERATE Pharmacy Profile Note 1 note 08/26/16 17:00 08/27/16 18:10 Coumadin Daily Reminder* FOLLOW UP 1 note 1700 LAUREN Administration Polyethylene Glycol/Electrolytes 17 gm 08/26/16 14:17 Miralax* PO DAILY PRN Constipation Sucralfate 1 gm 08/26/16 16:00 08/28/16 05:37 Carafate* PO 1 gm 0600,1100,1600,2100 LAUREN Administration Triamcinolone Acetonide 1 applic 08/26/16 22:08 08/27/16 19:22 Triamcinolone 0.025% Oint * TOPICAL 1 applic BID LAUREN Administration Warfarin Sodium 8 mg 08/28/16 17:00 Coumadin Tab(*) PO 08/28/16 17:01 ONCE@1700 ONE Protocol
--- NOTE | 2016-08-28 08:59 | PN ---
Subjective Date of Service: 08/28/16 Interval History: Patient seen and examined at bedside. Pt states that he is feeling well this morning, but is having some pain. Denies fever, chills, shortness of breath, chest discomfort, N/V/D. Pt states that he is urinating without difficulty. Family History: Unchanged from Admission Social History: Unchanged from Admission Past Medical History: Unchanged from Admission Objective Active Medications: Acetaminophen (Tylenol Tab*) 650 mg PO Q4H PRN Reason: PAIN OR TEMPERATURE Atorvastatin Calcium (Lipitor*) 40 mg PO BEDTIME LAUREN Bisacodyl (Dulcolax Supp*) 10 mg [place] DAILY PRN Reason: constipation Diphenhydramine HCl (Benadryl Iv*) 12.5 mg IV Q6H PRN Reason: PRURITIS Docusate Sodium (Colace Cap*) 100 mg PO BID LAUREN Doxycycline Hyclate (Vibramycin Cap(*)) 100 mg PO BID LAUREN Enoxaparin Sodium (Lovenox(*)) 30 mg SUBCUT Q24H LAUREN Ferrous Sulfate (Ferrous Sulfate Tab*) 325 mg PO DAILY LAUREN Fluticasone Propionate (Flonase Nasal [place] 50mcg*) 1 spray BOTH NARES DAILY [facility] Lactated Ringer's (Lactated Ringers 1000 Ml Bag*) 1,000 mls @ 100 mls/hr IV PER RATE LAUREN Lactulose (Lactulose*) 30 ml PO Q6H PRN Reason: constipation Magnesium Hydroxide (Milk Of Magnesia Liq*) 30 ml PO Q6H PRN Reason: constipation Metoprolol Succinate (Toprol Xl Tab*) 25 mg PO DAILY [facility] Morphine Sulfate (Morphine Inj (Syringe)*) 2 mg IV Q2H PRN Reason: PAIN Multivitamins/Minerals (Theragran/Minerals Tab*) 1 tab PO DAILY [facility] Nystatin (Nystatin Cream*) 1 applic TOPICAL BID LAUREN Omeprazole (Prilosec Cap*) 40 mg PO DAILY LAUREN Ondansetron HCl (Zofran Tab*) 4 mg PO Q6H PRN Reason: NAUSEA Oxycodone HCl (Roxycodone Tab*) 10 mg PO Q4H PRN Reason: SEVERE PAIN Oxycodone/Acetaminophen (Percocet 5/325 Tab*) 1 tab PO Q3H PRN Reason: PAIN - MODERATE Oxycodone/Acetaminophen (Percocet 5/325 Tab*) 2 tab PO Q3H PRN Reason: PAIN - MODERATE Pharmacy Profile Note (Coumadin Daily Reminder*) 1 note FOLLOW UP 1700 [facility] Polyethylene Glycol/Electrolytes (Miralax*) 17 gm PO DAILY PRN Reason: Constipation Sucralfate (Carafate*) 1 gm PO 0600,1100,1600,2100 [facility] Triamcinolone Acetonide (Triamcinolone 0.025% Oint *) 1 applic TOPICAL BID [facility] Warfarin Sodium (Coumadin Tab(*)) 8 mg PO ONCE@1700 ONE Stop: 08/28/16 17:01 Vital Signs 08/27/16 08/27/16 08/27/16 10:19 11:31 14:07 Temperature 97.9 F Pulse Rate 75 Respiratory 18 19 16 Rate Blood Pressure 98/56 (mmHg) O2 Sat by Pulse 98 Oximetry 08/27/16 08/27/16 08/27/16 15:37 16:00 16:07 Temperature 98.1 F Pulse Rate 90 Respiratory 17 16 Rate Blood Pressure 90/56 (mmHg) O2 Sat by Pulse 96 96 Oximetry 08/27/16 08/27/16 08/27/16 17:37 19:26 19:40 Temperature 98.1 F Pulse Rate 102 Respiratory 16 20 16 Rate Blood Pressure 108/66 (mmHg) O2 Sat by Pulse 96 Oximetry 08/27/16 08/27/16 08/27/16 21:56 22:58 23:56 Temperature 98.9 F Pulse Rate 107 Respiratory 16 18 16 Rate Blood Pressure 114/61 (mmHg) O2 Sat by Pulse 95 Oximetry 08/28/16 08/28/16 08/28/16 03:50 03:54 05:54 Temperature 98.5 F Pulse Rate 106 Respiratory 18 18 16 Rate Blood Pressure 120/68 (mmHg) O2 Sat by Pulse 92 Oximetry 08/28/16 08/28/16 07:17 08:02 Temperature 98.6 F Pulse Rate 93 92 Respiratory 16 18 Rate Blood Pressure 109/65 118/62 (mmHg) O2 Sat by Pulse 95 Oximetry Oxygen Devices in Use Now: None Appearance: NAD, laying in bed Eyes: No Scleral Icterus, PERRLA Ears/Nose/Mouth/Throat: Mucous Membranes Moist Respiratory: Symmetrical Chest Expansion and Respiratory Effort, Clear to Auscultation Cardiovascular: NL Sounds; No Murmurs; No JVD Abdominal: NL Sounds; No Tenderness; No Distention Extremities: No Edema Skin: No Rash or Ulcers, - - Dressing to right hip clean, dry and intact Neurological: Alert and Oriented x 3, NL Muscle Strength and Tone Lines/Tubes/Other Access: Clean, Dry and Intact Peripheral IV - site benign Nutrition: Taking PO's Result Diagrams: 08/28/16 05:13 08/27/16 05:28 Assess/Plan/Problems-Billing Assessment: Mr. Ley is a 61 yo male with PMH significant for PUD, PVD, HTN, CAD, [place], HLD Mcdowell's esophagus, and osteoarthritis who presented to the hospital for an elective right total hip replacement with Dr. Knox on 08/26/16. - Patient Problems (1) Status post total hip replacement, right Code(s): Z96.641 - PRESENCE OF RIGHT ARTIFICIAL HIP JOINT SNOMED Code(s): 231305367933 Comment: - POD #2, management per Orthopedics - HH stable - Continue pain management, bowel regime and PT/OT (2) Tachycardia Code(s): R00.0 - TACHYCARDIA, UNSPECIFIED SNOMED Code(s): 1441568 Comment: - Suspect this is related to Pt not receiving his beta-kush yesterday d/t hypotension - Will continue to monitor (3) PUD (peptic ulcer disease) Code(s): K27.9 - PEPTIC ULC, SITE UNSP, UNSP AC OR CHR, W/O HEMOR OR PERF SNOMED Code(s): 48232472 Comment: - Monitor for signs of bleeding - Continue Carafate and PPI (4) HTN (hypertension) Code(s): I10 - ESSENTIAL (PRIMARY) HYPERTENSION SNOMED Code(s): 27848238 Comment: - Blood pressure improved after IVF overnight - Continue Metoprolol with hold parameters - Continue to hold Lisinopril and HCTZ (5) HLD (hyperlipidemia) Code(s): E78.5 - HYPERLIPIDEMIA, UNSPECIFIED SNOMED Code(s): 07353723 Comment: - Continue statin (6) Mcdowell's esophagus Code(s): K22.70 - MCDOWELL'S ESOPHAGUS WITHOUT DYSPLASIA SNOMED Code(s): 367647218 Comment: - Continue Carafate and PPI (7) PVD (peripheral vascular disease) Code(s): I73.9 - PERIPHERAL VASCULAR DISEASE, UNSPECIFIED SNOMED Code(s): 128531647 Comment: - Continue statin (8) CAD (coronary artery disease) Code(s): I25.10 - ATHSCL HEART DISEASE OF [place] CORONARY ARTERY W/O ANG PCTRS SNOMED Code(s): 56591808 Comment: - Continue statin and Metoprolol (9) DVT prophylaxis Code(s): GJK5951 - SNOMED Code(s): 658547191 Comment: - Lovenox bridge to Warfarin (10) Full code status Code(s): Z78.9 - OTHER SPECIFIED HEALTH STATUS SNOMED Code(s): 390782248 Status and Disposition: Inpatient. Disposition per Orthopedics. Pt will need AMELIA.
[2016-08-28] MEDS: Fluticasone NASAL SPRAY 50MCG* 16 gm SPRAY BTL BOTH NARES SCH (09:03)
[2016-08-28] MEDS: Multivitamins/Minerals TAB PO SCH (09:03)
[2016-08-28] MEDS: DOXYcycline CAP(*) 100 MG PO SCH (09:03)
[2016-08-28] MEDS: Metoprolol Succinate XL TAB* 25 MG PO SCH (09:03)
[2016-08-28] MEDS: Omeprazole CAP* 20 MG PO SCH (09:04)
[2016-08-28] MEDS: Ferrous Sulfate TAB* 325 MG PO SCH (09:04)
[2016-08-28] MEDS: Docusate CAP* 100 MG PO SCH ×2 (09:04→20:57)
[2016-08-28] MEDS: Nystatin CREAM* 30 GM TOPICAL SCH ×2 (09:38→21:20)
[2016-08-28] MEDS: Triamcinolone 0.025% OINT * 15 GM TUBE TOPICAL SCH ×2 (09:38→21:20)
[2016-08-28] MEDS: Enoxaparin(*) 30 MG/0.3 ML SYR SUBCUT SCH (11:33)
[2016-08-28] MEDS ORDERED: Warfarin TAB(*) 4 MG PO ONE (17:00)
[2016-08-28] MEDS ORDERED: Naloxone* 0.4 MG/ML 1 ML VIAL ONE (19:10)
[2016-08-28] MEDS ORDERED: Naloxone* 0.4 MG/ML 1 ML VIAL IV PUSH ONE (19:31)
[2016-08-28 19:41] LABS: PCO2 Arterial 43 mmHg (35-45)
--- NOTE | 2016-08-28 19:45 | RAD ---
HISTORY: Altered mental status COMPARISONS: November 07, 2015 TECHNIQUE: Multiple contiguous axial CT scans were obtained of the head without intravenous contrast. FINDINGS: HEMORRHAGE/INFARCT: There is no hemorrhage or acute infarct. MASSES/SHIFT: There is no mass or shift. EXTRA-AXIAL SPACES: There are no extra-axial fluid collections. SULCI AND VENTRICLES: The sulci and ventricles are normal in size and position for the patient's stated age. CEREBRUM: There are no focal parenchymal abnormalities. BRAINSTEM: There are no focal parenchymal abnormalities. CEREBELLUM: There are no focal parenchymal abnormalities. VESSELS: The vessels are grossly normal. PARANASAL SINUSES: There is an air-fluid level within the left maxillary sinus ORBITS: The orbits are unremarkable. BONES AND SOFT TISSUE: No bone or soft tissue abnormalities are noted. OTHER: None IMPRESSION: NO ACUTE INTRACRANIAL PATHOLOGY.
--- NOTE | 2016-08-28 20:07 | PN ---
Hospitalist Progress Note Clinical Assessment Team called due to Patient being more lethargic this evening , with associated diaphoresis and complaints of nausea. Pt noted to have pin point pupils, no focal neurological deficits (hand night shift manager equal, tongue midline, smile symmetric, able to move all extremities). Pt last received 1 tab of Percocet at 1630 (Pt received total of 3 tabs throughout the day). SBP improved to 120-130's. Tachycardia resolved. Pt received a total of 0.8 mg of Narcan. Pt became more responsive with quicker respirations after 1st 0.4 mg of Narcan, but continued to be lethargic. He was able to answer some questions and follow commands. EKG obtained. Decision made to transfer Pt to ICU for closer monitoring. Will check brain CT, ABG, Ammonia, BMP and urine. Suspect AMS is related to Narcotic use, but will complete an AMS work-up to rule out other causes of the AMS. Dr. Knox and Pt's sister Aruna notified of transfer and change in condition.
[2016-08-28 20:51] LABS: Hematocrit 30 % (42-52); Mean Corpuscular HGB Conc 34 g/dl (31-36); Mean Corpuscular Hemoglobin 31 pg (27-31); Mean Corpuscular Volume 91 fL (80-94); Mean Platelet Volume 9 um3 (7.4-10.4); Red Blood Count 3.24 10^6/ul (4.0-5.4); Red Cell Distribution Width 12 % (10.5-15); White Blood Count 7.5 10^3/ul (3.5-10.8)
[2016-08-28 20:53] LABS: Albumin 2.8 g/dL (3.2-5.2); BUN/Creatinine Ratio 17.3 (8-20); Calcium 8.1 mg/dL (8.6-10.3); EGFR African American 135.3 (>60); EGFR Non-African American 105.2 (>60); Globulin 2.4 g/dL (2-4); Potassium 3.5 mmol/L (3.5-5.0); Total Bilirubin 0.4 mg/dL (0.2-1.0); Total Protein 5.2 g/dL (6.4-8.9)
[2016-08-28] MEDS: Atorvastatin* 40 MG TAB PO SCH (20:56)
[2016-08-28 20:57] LABS: Comments Flag Yes
[2016-08-28 20:58] LABS: Add Diff/Slide Review? Slide Review Added
[2016-08-28] MEDS: Acetaminophen TAB* 325 MG PO SCH (22:05)
[2016-08-28 22:18] LABS: Troponin I 0.04 ng/mL (<0.04)
--- NOTE | 2016-08-28 22:32 | PN ---
Hospitalist Progress Note trop .04, no complaints of chest pain, ekg stable, ? demand ischemia from recent srugery, will trend if elevate will check cta chest and echo.
[2016-08-29 00:56] LABS: Urine Bilirubin Negative (Negative); Urine Glucose Negative (Negative); Urine Nitrite Negative (Negative)
[2016-08-29 03:56] LABS: Hematocrit 28 % (42-52); Hemoglobin 9.6 g/dl (14.0-18.0)
[2016-08-29 03:57] LABS: Comments Flag Yes
[2016-08-29] MEDS: Acetaminophen TAB* 325 MG PO SCH ×3 (05:42→21:27)
[2016-08-29] MEDS: Sucralfate TAB* 1 GM PO SCH ×4 (05:43→20:53)
--- NOTE | 2016-08-29 07:05 | PN ---
Progress Note - Progress Note SOAP: Subjective: Pt. alert this am, reports minimal hip pain. Reports he felt dizzy and groggy yesterday but much better today. Objective: RLE - dressing c/d/i. distally nvi. thigh soft. Vital Signs: Temp Pulse Resp BP Pulse Ox 98.3 F 73 11 116/61 94 08/29/16 04:00 08/29/16 06:00 08/29/16 06:00 08/29/16 06:00 08/29/16 06:00 Laboratory Results - last 24 hr 08/28/16 08/28/16 08/28/16 19:08 19:26 20:25 WBC RBC Hgb Hct MCV MCH MCHC RDW Plt Count MPV Neut % (Auto) Lymph % (Auto) Nelson % (Auto) Eos % (Auto) Baso % (Auto) Absolute Neuts (auto) Absolute Lymphs (auto) Absolute Monos (auto) Absolute Eos (auto) Absolute Basos (auto) Absolute Nucleated RBC Nucleated RBC % INR (Anticoag Therapy) ABG pH 7.43 ABG pCO2 43 ABG pO2 71 L ABG HCO3 27.8 ABG O2 Saturation 97.4 ABG Base Excess 3.7 H Sodium Potassium Chloride Carbon Dioxide Anion Gap BUN Creatinine Est GFR ( Amer) Est GFR (Non-Af Amer) BUN/Creatinine Ratio Glucose POC Glucose (mg/dL) 191 H Calcium Total Bilirubin AST ALT Alkaline Phosphatase Ammonia 37 Troponin I Total Protein Albumin Globulin Albumin/Globulin Ratio Urine Color Urine Appearance Urine pH Ur Specific [place] Urine Protein Urine Ketones Urine Blood Urine Nitrate Urine Bilirubin Urine Urobilinogen Ur Leukocyte Esterase Urine Glucose 08/28/16 08/28/16 08/28/16 20:25 20:43 22:55 WBC 7.5 RBC 3.24 L Hgb 10.0 L Hct 30 L MCV 91 MCH 31 MCHC 34 RDW 12 Plt Count 94 L D MPV 9 Neut % (Auto) 77.3 Lymph % (Auto) 10.3 L Nelson % (Auto) 11.5 H Eos % (Auto) 0.7 Baso % (Auto) 0.2 Absolute Neuts (auto) 5.8 Absolute Lymphs (auto) 0.8 L Absolute Monos (auto) 0.9 H Absolute Eos (auto) 0.1 Absolute Basos (auto) 0 Absolute Nucleated RBC 0 Nucleated RBC % 0 INR (Anticoag Therapy) ABG pH ABG pCO2 ABG pO2 ABG HCO3 ABG O2 Saturation ABG Base Excess Sodium 137 Potassium 3.5 Chloride 102 Carbon Dioxide 27 Anion Gap 8 BUN 13 Creatinine 0.75 Est GFR ( Amer) 135.3 Est GFR (Non-Af Amer) 105.2 BUN/Creatinine Ratio 17.3 Glucose 151 H POC Glucose (mg/dL) Calcium 8.1 L Total Bilirubin 0.40 AST 28 ALT 17 Alkaline Phosphatase 56 Ammonia Troponin I 0.04 H* 0.03 Total Protein 5.2 L Albumin 2.8 L Globulin 2.4 Albumin/Globulin Ratio 1.2 Urine Color Urine Appearance Urine pH Ur Specific [place] Urine Protein Urine Ketones Urine Blood Urine Nitrate Urine Bilirubin Urine Urobilinogen Ur Leukocyte Esterase Urine Glucose 08/29/16 08/29/16 08/29/16 00:44 03:38 03:38 WBC RBC Hgb 9.6 L Hct 28 L MCV MCH MCHC RDW Plt Count MPV Neut % (Auto) Lymph % (Auto) Nelson % (Auto) Eos % (Auto) Baso % (Auto) Absolute Neuts (auto) Absolute Lymphs (auto) Absolute Monos (auto) Absolute Eos (auto) Absolute Basos (auto) Absolute Nucleated RBC Nucleated RBC % INR (Anticoag Therapy) 1.70 H ABG pH ABG pCO2 ABG pO2 ABG HCO3 ABG O2 Saturation ABG Base Excess Sodium Potassium Chloride Carbon Dioxide Anion Gap BUN Creatinine Est GFR ( Amer) Est GFR (Non-Af Amer) BUN/Creatinine Ratio Glucose POC Glucose (mg/dL) Calcium Total Bilirubin AST ALT Alkaline Phosphatase Ammonia Troponin I Total Protein Albumin Globulin Albumin/Globulin Ratio Urine Color Yellow Urine Appearance Clear Urine pH 6.0 Ur Specific [place] 1.018 Urine Protein Negative Urine Ketones Negative Urine Blood Negative Urine Nitrate Negative Urine Bilirubin Negative Urine Urobilinogen Negative Ur Leukocyte Esterase Negative Urine Glucose Negative 08/29/16 03:38 WBC RBC Hgb Hct MCV MCH MCHC RDW Plt Count MPV Neut % (Auto) Lymph % (Auto) Nelson % (Auto) Eos % (Auto) Baso % (Auto) Absolute Neuts (auto) Absolute Lymphs (auto) Absolute Monos (auto) Absolute Eos (auto) Absolute Basos (auto) Absolute Nucleated RBC Nucleated RBC % INR (Anticoag Therapy) ABG pH ABG pCO2 ABG pO2 ABG HCO3 ABG O2 Saturation ABG Base Excess Sodium Potassium Chloride Carbon Dioxide Anion Gap BUN Creatinine Est GFR ( Amer) Est GFR (Non-Af Amer) BUN/Creatinine Ratio Glucose POC Glucose (mg/dL) Calcium Total Bilirubin AST ALT Alkaline Phosphatase Ammonia Troponin I 0.04 H* Total Protein Albumin Globulin Albumin/Globulin Ratio Urine Color Urine Appearance Urine pH Ur Specific [place] Urine Protein Urine Ketones Urine Blood Urine Nitrate Urine Bilirubin Urine Urobilinogen Ur Leukocyte Esterase Urine Glucose Assessment: 61 yo M POD 3 s/p RTHA with sedation yesterday, troponin elevation, negative head CT Plan: appreciate hospitalist and ICU care will await hospitalist recs for troponin elevation wbat rle with post hip precautions 6 mg coumadin tonight, d/c lovenox pt/ot
[2016-08-29] MEDS: Docusate CAP* 100 MG PO SCH ×2 (07:54→21:02)
[2016-08-29] MEDS: Fluticasone NASAL SPRAY 50MCG* 16 gm SPRAY BTL BOTH NARES SCH (09:14)
[2016-08-29] MEDS: Multivitamins/Minerals TAB PO SCH (09:14)
[2016-08-29] MEDS: Omeprazole CAP* 20 MG PO SCH (09:14)
[2016-08-29] MEDS: Ferrous Sulfate TAB* 325 MG PO SCH (09:14)
[2016-08-29] MEDS: Metoprolol Succinate XL TAB* 25 MG PO SCH (09:15)
[2016-08-29] MEDS: Triamcinolone 0.025% OINT * 15 GM TUBE TOPICAL SCH ×2 (09:49→20:53)
[2016-08-29] MEDS: Nystatin CREAM* 30 GM TOPICAL SCH ×2 (09:58→20:54)
--- NOTE | 2016-08-29 09:59 | PN ---
Subjective Date of Service: 08/29/16 Interval History: Mr. Ley states that he is feeling very well this morning. He knows that he was quite confused last evening. He denies complaint today including chest pain , SOB, nausea, or abdominal pain. Family History: Unchanged from Admission Social History: Unchanged from Admission Past Medical History: Unchanged from Admission Objective Active Medications: Acetaminophen (Tylenol Tab*) 975 mg PO Q8H [facility] Last Admin: 08/29/16 05:42 Dose: 975 mg Atorvastatin Calcium (Lipitor*) 40 mg PO BEDTIME [facility] Last Admin: 08/28/16 20:56 Dose: Not Given Bisacodyl (Dulcolax Supp*) 10 mg [place] DAILY PRN PRN Reason: constipation Diphenhydramine HCl (Benadryl Iv*) 12.5 mg IV Q6H PRN PRN Reason: PRURITIS Docusate Sodium (Colace Cap*) 100 mg PO BID [facility] Last Admin: 08/29/16 07:54 Dose: Not Given Ferrous Sulfate (Ferrous Sulfate Tab*) 325 mg PO DAILY [facility] Last Admin: 08/29/16 09:14 Dose: 325 mg Fluticasone Propionate (Flonase Nasal [place] 50mcg*) 1 spray BOTH NARES DAILY [facility] Last Admin: 08/29/16 09:14 Dose: 1 spray Lactulose (Lactulose*) 30 ml PO Q6H PRN PRN Reason: constipation Magnesium Hydroxide (Milk Of Magnesia Liq*) 30 ml PO Q6H PRN PRN Reason: constipation Metoprolol Succinate (Toprol Xl Tab*) 25 mg PO DAILY [facility] Last Admin: 08/29/16 09:15 Dose: 25 mg Morphine Sulfate (Morphine Inj (Syringe)*) 2 mg IV Q2H PRN PRN Reason: PAIN Multivitamins/Minerals (Theragran/Minerals Tab*) 1 tab PO DAILY [facility] Last Admin: 08/29/16 09:14 Dose: 1 tab Nystatin (Nystatin Cream*) 1 applic TOPICAL BID [facility] Last Admin: 08/28/16 21:20 Dose: 1 applic Omeprazole (Prilosec Cap*) 40 mg PO DAILY [facility] Last Admin: 08/29/16 09:14 Dose: 40 mg Ondansetron HCl (Zofran Tab*) 4 mg PO Q6H PRN PRN Reason: NAUSEA Pharmacy Profile Note (Coumadin Daily Reminder*) 1 note FOLLOW UP 1700 [facility] Last Admin: 08/28/16 16:40 Dose: 1 note Polyethylene Glycol/Electrolytes (Miralax*) 17 gm PO DAILY PRN PRN Reason: Constipation Sucralfate (Carafate*) 1 gm PO 0600,1100,1600,2100 [facility] Last Admin: 08/29/16 05:43 Dose: 1 gm Triamcinolone Acetonide (Triamcinolone 0.025% Oint *) 1 applic TOPICAL BID [facility] Last Admin: 08/29/16 09:49 Dose: 1 applic Warfarin Sodium (Coumadin Tab(*)) 6 mg PO ONCE@1700 ONE PRN Reason: Protocol Stop: 08/29/16 17:01 Vital Signs 08/28/16 08/28/16 08/28/16 11:03 11:23 13:15 Temperature 99.3 F Pulse Rate 104 Respiratory 16 21 16 Rate Blood Pressure 105/54 (mmHg) O2 Sat by Pulse 97 Oximetry 08/28/16 08/28/16 08/28/16 15:15 15:30 16:39 Temperature 99.0 F Pulse Rate 84 Respiratory 16 16 16 Rate Blood Pressure 93/49 (mmHg) O2 Sat by Pulse 99 Oximetry 08/28/16 08/28/16 08/28/16 18:39 19:00 19:02 Temperature 97.8 F 97.2 F Pulse Rate 59 58 Respiratory 8 20 20 Rate Blood Pressure 119/63 130/65 (mmHg) O2 Sat by Pulse 99 97 Oximetry 08/28/16 08/28/16 08/28/16 19:03 19:32 19:50 Temperature 97.2 F 97.8 F Pulse Rate 58 68 70 Respiratory 20 20 Rate Blood Pressure 130/65 135/78 (mmHg) O2 Sat by Pulse 96 94 96 Oximetry 08/28/16 08/28/16 08/28/16 19:53 20:00 20:15 Temperature Pulse Rate 65 62 Respiratory 23 24 Rate Blood Pressure 135/67 131/67 (mmHg) O2 Sat by Pulse 89 91 Oximetry 08/28/16 08/28/16 08/28/16 21:00 22:00 22:15 Temperature Pulse Rate 67 71 68 Respiratory 21 18 20 Rate Blood Pressure 134/73 131/75 (mmHg) O2 Sat by Pulse 96 96 97 Oximetry 05/08/1108/28/16 08/28/16 22:30 22:45 23:00 Temperature Pulse Rate 68 60 Respiratory 23 21 Rate Blood Pressure 130/79 138/77 124/68 (mmHg) O2 Sat by Pulse 97 96 Oximetry 08/28/16 08/28/16 08/28/16 23:10 23:15 23:30 Temperature Pulse Rate 63 58 60 Respiratory 21 21 18 Rate Blood Pressure 145/76 132/70 (mmHg) O2 Sat by Pulse 96 97 97 Oximetry 08/28/16 08/28/16 08/29/16 23:45 23:58 00:00 Temperature 99.2 F Pulse Rate 65 71 Respiratory 19 20 Rate Blood Pressure 118/68 (mmHg) O2 Sat by Pulse 96 96 Oximetry 08/29/16 08/29/16 08/29/16 00:01 00:15 00:30 Temperature Pulse Rate 69 75 65 Respiratory 19 23 11 Rate Blood Pressure 135/75 140/83 120/76 (mmHg) O2 Sat by Pulse 96 95 96 Oximetry 08/29/16 08/29/16 08/29/16 00:45 01:00 01:01 Temperature Pulse Rate 85 62 64 Respiratory 25 10 11 Rate Blood Pressure 127/78 128/69 115/75 (mmHg) O2 Sat by Pulse 94 96 97 Oximetry 08/29/16 08/29/16 08/29/16 01:15 01:30 02:00 Temperature Pulse Rate 57 57 80 Respiratory 15 18 18 Rate Blood Pressure 138/72 139/67 139/70 (mmHg) O2 Sat by Pulse 98 98 95 Oximetry 08/29/16 08/29/16 08/29/16 03:00 04:00 05:00 Temperature 98.3 F Pulse Rate 86 65 Respiratory 18 23 19 Rate Blood Pressure 139/70 121/60 (mmHg) O2 Sat by Pulse 96 95 Oximetry 08/29/16 08/29/16 08/29/16 05:03 05:40 06:00 Temperature Pulse Rate 63 73 Respiratory 19 18 11 Rate Blood Pressure 110/55 116/61 (mmHg) O2 Sat by Pulse 95 94 Oximetry 08/29/16 08/29/16 08/29/16 07:00 07:51 08:00 Temperature 98.9 F Pulse Rate 80 87 Respiratory 20 23 Rate Blood Pressure 129/75 135/103 (mmHg) O2 Sat by Pulse 95 96 Oximetry Oxygen Devices in Use Now: None Appearance: Male sitting up in bed in NAD Respiratory: Symmetrical Chest Expansion and Respiratory Effort, Clear to Auscultation Cardiovascular: NL Sounds; No Murmurs; No JVD, No Edema Abdominal: NL Sounds; No Tenderness; No Distention Extremities: No Edema Skin: No Rash or Ulcers Neurological: Alert and Oriented x 3, NL Muscle Strength and Tone - Interacts appropriately, follows all commands Nutrition: Taking PO's Result Diagrams: 08/29/16 03:38 08/28/16 20:25 Assess/Plan/Problems-Billing Assessment: Mr. Ley is a 61 yo male with PMH significant for PUD, PVD, HTN, CAD, [place], HLD Mcdowell's esophagus, and osteoarthritis who presented to the hospital for an elective right total hip replacement with Dr. Knox on 08/26/16. - Patient Problems (1) Delirium Comment: Based on negative workup and resolution of symptoms, suspect patient had delirium related to surgery and hospitalization. Continue supportive care as needed and avoid deliriogenic agents. (2) Elevated troponin Comment: Neglible stable elevation attributable to demand ischemia in setting of recent surgery. Patient asymptomatic, EKG without evidence of ischemia. No further workup indicated. (3) Status post total hip replacement, right Comment: POD #3, management per Orthopedics. HH stable. Continue pain management with bowel regime. Continue PT/OT. (4) Anemia Comment: Stable post-op. Plan to transfuse for Hgb < 8 if patient symptomatic. (5) HTN (hypertension) Comment: SBP 120-130s. Continue Metoprolol with hold parameters. Resume lisinopril, consider resuming hctz tomorrow. (6) CAD (coronary artery disease) Comment: Asymptomatic. Continue atorvastatin, metoprolol and lisinopril. (7) HLD (hyperlipidemia) Comment: Continue atorvastatin. (8) PUD (peptic ulcer disease) Code(s): K27.9 - PEPTIC ULC, SITE UNSP, UNSP AC OR CHR, W/O HEMOR OR PERF Comment: With Mcdowell's esophagus. Asymptomatic. Continue Carafate and PPI. (9) PVD (peripheral vascular disease) Comment: Continue atorvastatin. (10) Full code status (11) DVT prophylaxis Comment: Lovenox bridge to Warfarin Status and Disposition: Inpatient. Disposition per Orthopedics.
[2016-08-29] MEDS ORDERED: Warfarin TAB(*) 6 MG PO ONE (17:00)
[2016-08-29] MEDS: Atorvastatin* 40 MG TAB PO SCH (20:53)
[2016-08-30] MEDS: Sucralfate TAB* 1 GM PO SCH ×4 (05:40→23:19)
[2016-08-30] MEDS: Acetaminophen TAB* 325 MG PO SCH ×3 (05:40→21:30)
[2016-08-30 05:56] LABS: Hematocrit 28 % (42-52); Hemoglobin 9.5 g/dl (14.0-18.0)
--- NOTE | 2016-08-30 08:49 | PN ---
Progress Note - Progress Note SOAP: Subjective: Pt states he feels better. His pain is controlled. He has had a BM. He denies CP, SOB, N/T, or fever chills. VSS overnight Objective: PE- 61 y/o M, NAD, A&O x 3 RLE- dressing changed, inc c/d/i no sign of infection, calf soft nontender, +DF/ PF ankle, +2 DP pulse, sensation intact Vital Signs Temp Pulse Resp BP Pulse Ox 98.5 F 79 15 141/81 99 08/30/16 07:44 08/30/16 07:44 08/30/16 07:44 08/30/16 07:44 08/30/16 07:44 Laboratory Results - last 24 hr 08/30/16 08/30/16 05:08 05:08 Hgb 9.5 L Hct 28 L INR (Anticoag Therapy) 2.69 H Assessment: 61 yo M POD 4 s/p RTHA with troponin elevation, negative head CT, transferred from ICU to [facility] Plan: appreciate hospitalist input wbat rle with post hip precautions hold coumadin tonight pt/ot Plan DC to SNF, awaiting bed, probable Thursday
[2016-08-30] MEDS: Ferrous Sulfate TAB* 325 MG PO SCH (08:55)
[2016-08-30] MEDS: Lisinopril TAB* 10 MG PO SCH (08:56)
[2016-08-30] MEDS: Metoprolol Succinate XL TAB* 25 MG PO SCH (08:56)
[2016-08-30] MEDS: Docusate CAP* 100 MG PO SCH ×2 (08:57→21:30)
[2016-08-30] MEDS: Multivitamins/Minerals TAB PO SCH (08:57)
[2016-08-30] MEDS: Fluticasone NASAL SPRAY 50MCG* 16 gm SPRAY BTL BOTH NARES SCH (08:57)
[2016-08-30] MEDS: Omeprazole CAP* 20 MG PO SCH (08:57)
[2016-08-30] MEDS: Triamcinolone 0.025% OINT * 15 GM TUBE TOPICAL SCH (11:19)
[2016-08-30] MEDS: Nystatin CREAM* 30 GM TOPICAL SCH (11:19)
--- NOTE | 2016-08-30 13:56 | PN ---
Subjective Date of Service: 08/30/16 Interval History: This is a 61 yo gentleman with CAD, HTN, HLD, PUD, PVD with recent treatment for cellulitis who is now s/p JATIN by Dr Knox. Patient did experience some post op delirium, now resolved. He otherwise denies any acute complaints. Pain is well controlled. Denies CP, SOB, abd pain, n/v. Objective Active Medications: Acetaminophen (Tylenol Tab*) 975 mg PO Q8H [facility] Last Admin: 08/30/16 13:49 Dose: 975 mg Atorvastatin Calcium (Lipitor*) 40 mg PO BEDTIME [facility] Last Admin: 08/29/16 20:53 Dose: 40 mg Bisacodyl (Dulcolax Supp*) 10 mg [place] DAILY PRN PRN Reason: constipation Diphenhydramine HCl (Benadryl Iv*) 12.5 mg IV Q6H PRN PRN Reason: PRURITIS Docusate Sodium (Colace Cap*) 100 mg PO BID [facility] Last Admin: 08/30/16 08:57 Dose: Not Given Ferrous Sulfate (Ferrous Sulfate Tab*) 325 mg PO DAILY [facility] Last Admin: 08/30/16 08:55 Dose: 325 mg Fluticasone Propionate (Flonase Nasal [place] 50mcg*) 1 spray BOTH NARES DAILY [facility] Last Admin: 08/30/16 08:57 Dose: 1 spray Lactulose (Lactulose*) 30 ml PO Q6H PRN PRN Reason: constipation Lisinopril (Prinivil Tab*) 10 mg PO DAILY [facility] Last Admin: 08/30/16 08:56 Dose: 10 mg Magnesium Hydroxide (Milk Of Magnesia Liq*) 30 ml PO Q6H PRN PRN Reason: constipation Metoprolol Succinate (Toprol Xl Tab*) 25 mg PO DAILY [facility] Last Admin: 08/30/16 08:56 Dose: 25 mg Morphine Sulfate (Morphine Inj (Syringe)*) 2 mg IV Q2H PRN PRN Reason: PAIN Multivitamins/Minerals (Theragran/Minerals Tab*) 1 tab PO DAILY [facility] Last Admin: 08/30/16 08:57 Dose: 1 tab Nystatin (Nystatin Cream*) 1 applic TOPICAL BID [facility] Last Admin: 08/30/16 11:19 Dose: Not Given Omeprazole (Prilosec Cap*) 40 mg PO DAILY [facility] Last Admin: 08/30/16 08:57 Dose: 40 mg Ondansetron HCl (Zofran Tab*) 4 mg PO Q6H PRN PRN Reason: NAUSEA Pharmacy Profile Note (Coumadin Daily Reminder*) 1 note FOLLOW UP 1700 [facility] Last Admin: 08/29/16 17:41 Dose: 1 note Polyethylene Glycol/Electrolytes (Miralax*) 17 gm PO DAILY PRN PRN Reason: Constipation Sucralfate (Carafate*) 1 gm PO 0600,1100,1600,2100 [facility] Last Admin: 08/30/16 11:19 Dose: 1 gm Triamcinolone Acetonide (Triamcinolone 0.025% Oint *) 1 applic TOPICAL BID [facility] Last Admin: 08/30/16 11:19 Dose: Not Given Vital Signs: Temp Pulse Resp BP Pulse Ox 98.5 F 74 15 109/56 100 08/30/16 11:30 08/30/16 11:30 08/30/16 11:30 08/30/16 11:30 08/30/16 11:30 Oxygen Devices in Use Now: None Appearance: Well appearing, in NAD Respiratory: Symmetrical Chest Expansion and Respiratory Effort, Clear to Auscultation Cardiovascular: NL Sounds; No Murmurs; No JVD, RRR Extremities: No Edema Skin: No Rash or Ulcers, - - dressings taken down from both ankles, skin is intact without erythema Neurological: Alert and Oriented x 3 Result Diagrams: 08/30/16 05:08 08/28/16 20:25 Assess/Plan/Problems-Billing Assessment: Mr. Ley is a 61 yo male with PMH significant for PUD, PVD, HTN, CAD, [place], HLD Mcdowell's esophagus, and osteoarthritis who presented to the hospital for an elective right total hip replacement with Dr. Knox on 08/26/16. - Patient Problems (1) Status post total hip replacement, right Comment: POD #4 Management per Orthopedics (2) Cellulitis Comment: Resolved Recent treatment for LE cellulitis Completed doxycycline Can stop dressing changes and application of nystatin/triamcinolone cream (3) Delirium Comment: Now resolved (4) Elevated troponin Comment: Neglible stable elevation attributable to demand ischemia in setting of recent surgery. Patient asymptomatic, EKG without evidence of ischemia. No further workup indicated. (5) Anemia Comment: Blood loss anemia related to surgery Stable Hgb post-op No indication for transfusion (6) Mcdowell's esophagus Comment: Continue Carafate and PPI (7) CAD (coronary artery disease) Comment: Asymptomatic. Continue atorvastatin, metoprolol and lisinopril. No ASA on home med list? would recommend starting at dc if no contraindication (8) HLD (hyperlipidemia) Comment: Continue atorvastatin. (9) HTN (hypertension) Comment: Normotensive Cont lisinopril and metoprolol. Resume HCTz (10) PUD (peptic ulcer disease) Comment: With Mcdowell's esophagus. Asymptomatic. Continue Carafate and PPI. h/o invasive eleni, followed by Dr Dennis (11) PVD (peripheral vascular disease) Comment: Continue atorvastatin. (12) Full code status (13) DVT prophylaxis Comment: Coumadin, INR therapeutic Status and Disposition: Inpatient. Disposition per Orthopedics, plan for dc to [facility]. Hospitalist group will cont to follow along
[2016-08-30] MEDS: Atorvastatin* 40 MG TAB PO SCH (21:30)
[2016-08-31 05:56] LABS: Hematocrit 29 % (42-52); Hemoglobin 9.9 g/dl (14.0-18.0)
[2016-08-31] MEDS: Sucralfate TAB* 1 GM PO SCH ×4 (06:47→21:43)
--- NOTE | 2016-08-31 09:27 | PN ---
Progress Note - Progress Note SOAP: Subjective: Pt is doing well. His pain is well controlled. He has had several BM. He denies F/C, CP, SOB, lightheadedness, or N/T. VSS overnight Objective: PE- 61 y/o F NAD, A&Ox3 RLE- dressing changed, inc c/d/i with no sign of infection, calf soft nontender , +DF/PF ankle, NVI Vital Signs Temp Pulse Resp BP Pulse Ox 98.7 F 81 14 117/68 99 08/31/16 07:38 08/31/16 07:38 08/31/16 07:38 08/31/16 07:38 08/31/16 07:38 Laboratory Results - last 24 hr 08/31/16 08/31/16 05:29 05:29 Hgb 9.9 L Hct 29 L INR (Anticoag Therapy) 3.36 H Assessment: 61 yo M POD 5 s/p RTHA h/o troponin elevation, negative head CT, transferred from ICU to [facility] Plan: appreciate hospitalist input wbat rle with post hip precautions- cont PT/OT hold coumadin tonight Plan DC to SNF Thursday
[2016-08-31] MEDS: Metoprolol Succinate XL TAB* 25 MG PO SCH (09:44)
[2016-08-31] MEDS: Ferrous Sulfate TAB* 325 MG PO SCH (09:44)
[2016-08-31] MEDS: Omeprazole CAP* 20 MG PO SCH (09:44)
[2016-08-31] MEDS: Lisinopril TAB* 10 MG PO SCH (09:45)
[2016-08-31] MEDS: Multivitamins/Minerals TAB PO SCH (09:45)
[2016-08-31] MEDS: Acetaminophen TAB* 325 MG PO SCH ×3 (09:45→18:41)
[2016-08-31] MEDS: Fluticasone NASAL SPRAY 50MCG* 16 gm SPRAY BTL BOTH NARES SCH (09:45)
[2016-08-31] MEDS: Hydrochlorothiazide TAB* 25 MG PO SCH (09:45)
[2016-08-31] MEDS: Docusate CAP* 100 MG PO SCH ×2 (09:48→19:12)
--- NOTE | 2016-08-31 15:35 | PN ---
Subjective Date of Service: 08/31/16 Interval History: Patient reports that he is feeling quite well. He denies any acute complaints. Anxious for discharge. No CP, SOB, abd pain, n/v. Objective Active Medications: Acetaminophen (Tylenol Tab*) 975 mg PO 0200,1000,1800 [facility] Atorvastatin Calcium (Lipitor*) 40 mg PO BEDTIME [facility] Last Admin: 08/30/16 21:30 Dose: 40 mg Bisacodyl (Dulcolax Supp*) 10 mg [place] DAILY PRN PRN Reason: constipation Diphenhydramine HCl (Benadryl Iv*) 12.5 mg IV Q6H PRN PRN Reason: PRURITIS Docusate Sodium (Colace Cap*) 100 mg PO BID [facility] Last Admin: 08/31/16 09:48 Dose: Not Given Ferrous Sulfate (Ferrous Sulfate Tab*) 325 mg PO DAILY [facility] Last Admin: 08/31/16 09:44 Dose: 325 mg Fluticasone Propionate (Flonase Nasal [place] 50mcg*) 1 spray BOTH NARES DAILY [facility] Last Admin: 08/31/16 09:45 Dose: 1 spray Hydrochlorothiazide (Hydrodiuril Tab*) 25 mg PO DAILY [facility] Last Admin: 08/31/16 09:45 Dose: 25 mg Lactulose (Lactulose*) 30 ml PO Q6H PRN PRN Reason: constipation Lisinopril (Prinivil Tab*) 10 mg PO DAILY [facility] Last Admin: 08/31/16 09:45 Dose: 10 mg Magnesium Hydroxide (Milk Of Magnesia Liq*) 30 ml PO Q6H PRN PRN Reason: constipation Metoprolol Succinate (Toprol Xl Tab*) 25 mg PO DAILY [facility] Last Admin: 08/31/16 09:44 Dose: 25 mg Morphine Sulfate (Morphine Inj (Syringe)*) 2 mg IV Q2H PRN PRN Reason: PAIN Multivitamins/Minerals (Theragran/Minerals Tab*) 1 tab PO DAILY [facility] Last Admin: 08/31/16 09:45 Dose: 1 tab Omeprazole (Prilosec Cap*) 40 mg PO DAILY [facility] Last Admin: 08/31/16 09:44 Dose: 40 mg Ondansetron HCl (Zofran Tab*) 4 mg PO Q6H PRN PRN Reason: NAUSEA Pharmacy Profile Note (Coumadin Daily Reminder*) 1 note FOLLOW UP 1700 [facility] Last Admin: 08/30/16 16:39 Dose: 1 note Polyethylene Glycol/Electrolytes (Miralax*) 17 gm PO DAILY PRN PRN Reason: Constipation Sucralfate (Carafate*) 1 gm PO 0600,1100,1600,2100 [facility] Last Admin: 08/31/16 12:08 Dose: 1 gm Vital Signs: Temp Pulse Resp BP Pulse Ox 98.6 F 88 15 123/73 99 08/31/16 15:07 08/31/16 15:07 08/31/16 15:07 08/31/16 15:07 08/31/16 15:07 Oxygen Devices in Use Now: None Appearance: Well appearing, in NAD. Sitting upright, pleasant. Respiratory: Symmetrical Chest Expansion and Respiratory Effort, Clear to Auscultation Cardiovascular: NL Sounds; No Murmurs; No JVD, RRR Abdominal: NL Sounds; No Tenderness; No Distention Extremities: No Edema Neurological: Alert and Oriented x 3 Result Diagrams: 08/31/16 05:29 08/28/16 20:25 Assess/Plan/Problems-Billing Assessment: Mr. Ley is a 61 yo male with PMH significant for PUD, PVD, HTN, CAD, [place], HLD Mcdowell's esophagus, and osteoarthritis who presented to the hospital for an elective right total hip replacement with Dr. Knox on 08/26/16. - Patient Problems (1) Status post total hip replacement, right Comment: POD #5 Management per Orthopedics (2) Cellulitis Comment: Resolved Recent treatment for LE cellulitis Completed doxycycline Can stop dressing changes and application of nystatin/triamcinolone cream (3) Delirium Comment: Now resolved (4) Elevated troponin Comment: Neglible stable elevation attributable to demand ischemia in setting of recent surgery. Patient asymptomatic, EKG without evidence of ischemia. No further workup indicated. (5) Anemia Comment: Blood loss anemia related to surgery Stable Hgb post-op No indication for transfusion (6) Mcdowell's esophagus Comment: Continue Carafate and PPI (7) CAD (coronary artery disease) Comment: Asymptomatic. Continue atorvastatin, metoprolol and lisinopril. No ASA on home med list? would recommend starting at dc if no contraindication Pt reports that it was recently stopped, not just regarding surgery, perhaps surrounding recent bleeding gastric ulcer? Recommend readdressing with PCP (8) HLD (hyperlipidemia) Comment: Continue atorvastatin. (9) HTN (hypertension) Comment: Normotensive Cont lisinopril and metoprolol. Resume HCTz (10) PUD (peptic ulcer disease) Comment: With Mcdowell's esophagus. Asymptomatic. Continue Carafate and PPI. h/o invasive eleni, followed by Dr Dennis (11) PVD (peripheral vascular disease) Comment: Continue atorvastatin. (12) Full code status (13) DVT prophylaxis Comment: Coumadin, INR therapeutic Status and Disposition: Inpatient. Disposition per Orthopedics, plan for dc to [facility]. Hospitalist group will cont to follow along
[2016-08-31] MEDS: Atorvastatin* 40 MG TAB PO SCH (19:12)
[2016-09-01] MEDS: Acetaminophen TAB* 325 MG PO SCH ×2 (03:22→12:31)
[2016-09-01] MEDS: Sucralfate TAB* 1 GM PO SCH ×2 (05:45→12:32)
--- NOTE | 2016-09-01 08:37 | PN ---
Subjective Date of Service: 09/01/16 Interval History: Patient seen and examined at bedside. Pt states that he is feeling well this morning and his pain is controlled. Denies fever, chills, shortness of breath, chest discomfort, N/V/D. Family History: Unchanged from Admission Social History: Unchanged from Admission Past Medical History: Unchanged from Admission Objective Active Medications: Acetaminophen (Tylenol Tab*) 975 mg PO 0200,1000,1800 [facility] Atorvastatin Calcium (Lipitor*) 40 mg PO BEDTIME LAUREN Bisacodyl (Dulcolax Supp*) 10 mg [place] DAILY PRN Reason: constipation Diphenhydramine HCl (Benadryl Iv*) 12.5 mg IV Q6H PRN Reason: PRURITIS Docusate Sodium (Colace Cap*) 100 mg PO BID LAUREN Ferrous Sulfate (Ferrous Sulfate Tab*) 325 mg PO DAILY LAUREN Fluticasone Propionate (Flonase Nasal [place] 50mcg*) 1 spray BOTH NARES DAILY [facility] Hydrochlorothiazide (Hydrodiuril Tab*) 25 mg PO DAILY LAUREN Lactulose (Lactulose*) 30 ml PO Q6H PRN Reason: constipation Lisinopril (Prinivil Tab*) 10 mg PO DAILY LAUREN Magnesium Hydroxide (Milk Of Magnesia Liq*) 30 ml PO Q6H PRN Reason: constipation Metoprolol Succinate (Toprol Xl Tab*) 25 mg PO DAILY LAUREN Morphine Sulfate (Morphine Inj (Syringe)*) 2 mg IV Q2H PRN Reason: PAIN Multivitamins/Minerals (Theragran/Minerals Tab*) 1 tab PO DAILY [facility] Omeprazole (Prilosec Cap*) 40 mg PO DAILY LAUREN Ondansetron HCl (Zofran Tab*) 4 mg PO Q6H PRN Reason: NAUSEA Pharmacy Profile Note (Coumadin Daily Reminder*) 1 note FOLLOW UP 1700 [facility] Polyethylene Glycol/Electrolytes (Miralax*) 17 gm PO DAILY PRN Reason: Constipation Sucralfate (Carafate*) 1 gm PO 0600,1100,1600,2100 [facility] Vital Signs 08/31/16 08/31/16 08/31/16 11:39 15:07 19:18 Temperature 98.8 F 98.6 F Pulse Rate 86 88 Respiratory 15 15 20 Rate Blood Pressure 120/75 123/73 (mmHg) O2 Sat by Pulse 99 99 Oximetry 08/31/16 08/31/1609/01/17 19:19 23:39 03:21 Temperature 98.1 F 97.8 F 98.2 F Pulse Rate 87 75 78 Respiratory 16 16 16 Rate Blood Pressure 132/74 124/75 120/63 (mmHg) O2 Sat by Pulse 100 99 99 Oximetry 09/01/16 07:16 Temperature 98.2 F Pulse Rate 68 Respiratory 16 Rate Blood Pressure 129/77 (mmHg) O2 Sat by Pulse 96 Oximetry Oxygen Devices in Use Now: None Appearance: NAD, sitting up on the side of the bed Eyes: No Scleral Icterus, PERRLA Ears/Nose/Mouth/Throat: Mucous Membranes Moist Respiratory: Symmetrical Chest Expansion and Respiratory Effort, Clear to Auscultation Cardiovascular: NL Sounds; No Murmurs; No JVD, RRR Abdominal: NL Sounds; No Tenderness; No Distention Extremities: - - Trace right LE edema Skin: No Rash or Ulcers Neurological: Alert and Oriented x 3, NL Muscle Strength and Tone Nutrition: Taking PO's Result Diagrams: 08/31/16 05:29 08/28/16 20:25 Assess/Plan/Problems-Billing Assessment: Mr. Ley is a 61 yo male with PMH significant for PUD, PVD, HTN, CAD, [place], HLD Mcdowell's esophagus, and osteoarthritis who presented to the hospital for an elective right total hip replacement with Dr. Knox on 08/26/16. - Patient Problems (1) Status post total hip replacement, right Code(s): Z96.641 - PRESENCE OF RIGHT ARTIFICIAL HIP JOINT SNOMED Code(s): 159014551181 Comment: - POD #6, management per Orthopedics - HH stable - Continue pain management, bowel regime and PT/OT (2) Cellulitis Code(s): L03.90 - CELLULITIS, UNSPECIFIED SNOMED Code(s): 467683244 Comment: - Resolved - Recent treatment for LE cellulitis, followed by Dr. Dennis - Completed doxycycline - Can stop dressing changes and application of nystatin/triamcinolone cream (3) Delirium Code(s): R41.0 - DISORIENTATION, UNSPECIFIED SNOMED Code(s): 6016996 Comment: - Now resolved (4) Elevated troponin Code(s): R74.8 - ABNORMAL LEVELS OF OTHER SERUM ENZYMES SNOMED Code(s): 028140851 Comment: - Neglible stable elevation attributable to demand ischemia in setting of recent surgery. - Patient asymptomatic, EKG without evidence of ischemia. - No further workup indicated. (5) Anemia Code(s): D64.9 - ANEMIA, UNSPECIFIED SNOMED Code(s): 446073656 Comment: - Blood loss anemia related to surgery - Stable Hgb post-op - No indication for transfusion (6) Tachycardia Code(s): R00.0 - TACHYCARDIA, UNSPECIFIED SNOMED Code(s): 8149399 Comment: - Resolved (7) PUD (peptic ulcer disease) Code(s): K27.9 - PEPTIC ULC, SITE UNSP, UNSP AC OR CHR, W/O HEMOR OR PERF SNOMED Code(s): 24674979 Comment: - With Mcdowell's esophagus. - Asymptomatic. - Continue Carafate and PPI. - h/o invasive eleni, followed by Dr Dennis (8) HTN (hypertension) Code(s): I10 - ESSENTIAL (PRIMARY) HYPERTENSION SNOMED Code(s): 45401439 Comment: - Normotensive - Continue lisinopril, metoprolol and HCTz (9) HLD (hyperlipidemia) Code(s): E78.5 - HYPERLIPIDEMIA, UNSPECIFIED SNOMED Code(s): 00356631 Comment: - Continue atorvastatin. (10) PVD (peripheral vascular disease) Code(s): I73.9 - PERIPHERAL VASCULAR DISEASE, UNSPECIFIED SNOMED Code(s): 453694640 Comment: - Continue atorvastatin. (11) CAD (coronary artery disease) Code(s): I25.10 - ATHSCL HEART DISEASE OF [place] CORONARY ARTERY W/O ANG PCTRS SNOMED Code(s): 32698748 Comment: - Asymptomatic. - Continue atorvastatin, metoprolol and lisinopril. - No ASA on home med list? would recommend starting at dc if no contraindication - Pt reports that it was recently stopped, not just regarding surgery, perhaps surrounding recent bleeding gastric ulcer? - Recommend readdressing with PCP (12) DVT prophylaxis Code(s): MBG6757 - SNOMED Code(s): 386542340 Comment: Coumadin, INR therapeutic (13) Full code status Code(s): Z78.9 - OTHER SPECIFIED HEALTH STATUS SNOMED Code(s): 150514524 Status and Disposition: Inpatient. Disposition per Orthopedics, plan for discharge to [facility].
[2016-09-01] MEDS: Metoprolol Succinate XL TAB* 25 MG PO SCH (08:47)
[2016-09-01] MEDS: Omeprazole CAP* 20 MG PO SCH (08:47)
[2016-09-01] MEDS: Docusate CAP* 100 MG PO SCH (08:47)
[2016-09-01] MEDS: Multivitamins/Minerals TAB PO SCH (08:47)
[2016-09-01] MEDS: Ferrous Sulfate TAB* 325 MG PO SCH (08:48)
[2016-09-01] MEDS: Fluticasone NASAL SPRAY 50MCG* 16 gm SPRAY BTL BOTH NARES SCH (08:50)
[2016-09-01] MEDS: Hydrochlorothiazide TAB* 25 MG PO SCH (08:51)
[2016-09-01] MEDS: Lisinopril TAB* 10 MG PO SCH (08:51)
[2016-09-01 11:22] VITALS: BP 110/74
--- NOTE | 2016-09-01 12:17 | PN ---
Progress Note - Progress Note SOAP: Subjective: 61 y/o male s/p RIGHT JATIN by Dr. Knox .. patient eager for D/C, no complaints, with sister. VSS, afebrile. Objective: General- Well appearing, NAD sitting in bed comfortably MSK- mild swelling R LE"s, minimal ecchymosis RLE. incision C/D/I, no drainage noted on dressing. Vital Signs Temp 98.4 F 09/01/16 11:20 Pulse 94 09/01/16 11:20 Resp 17 09/01/16 11:20 BP 110/74 09/01/16 11:20 Pulse Ox 100 09/01/16 11:20 Intake & Output 08/31/16 09/01/16 09/01/16 18:59 06:59 18:59 Intake Total 1345 400 120 Output Total 525 950 700 Balance 820 -550 -580 Intake: Oral 1345 400 120 Output: Urine 525 950 700 Assessment: 61 y/o male s/p RIGHT JATIN by Dr. Knox 08.26.2016. Plan: - D/C to SNF today - Follow up with Dr. Knox within 7-10 days - Coumadin for DVT prophylaxis, coumadin as dosed - Percocet sparingly for pain control, tylenol Active Medications Generic Name Dose Route Start Last Admin Trade Name Freq PRN Reason Stop Dose Admin Acetaminophen 975 mg 08/31/16 18:00 09/01/16 03:22 Tylenol Tab* PO 975 mg 0200,1000,1800 LAUREN Administration Atorvastatin Calcium 40 mg 08/26/16 21:00 08/31/16 19:12 Lipitor* PO 40 mg BEDTIME LAUREN Administration Bisacodyl 10 mg 08/26/16 14:17 Dulcolax Supp* [place] DAILY PRN constipation Diphenhydramine HCl 12.5 mg 08/26/16 14:17 Benadryl Iv* IV Q6H PRN PRURITIS Docusate Sodium 100 mg 08/26/16 21:00 09/01/16 08:47 Colace Cap* PO 100 mg BID LAUREN Administration Ferrous Sulfate 325 mg 08/27/16 09:00 09/01/16 08:48 Ferrous Sulfate Tab* PO 325 mg DAILY LAUREN Administration Fluticasone Propionate 1 spray 08/27/16 09:00 09/01/16 08:50 Flonase Nasal [place] 50mcg* BOTH NARES Not Given DAILY LAUREN Hydrochlorothiazide 25 mg 08/31/16 09:00 09/01/16 08:51 Hydrodiuril Tab* PO 25 mg DAILY LAUREN Administration Lactulose 30 ml 08/26/16 14:17 Lactulose* PO Q6H PRN constipation Lisinopril 10 mg 08/30/16 09:00 09/01/16 08:51 Prinivil Tab* PO 10 mg DAILY LAUREN Administration Magnesium Hydroxide 30 ml 08/26/16 14:17 Milk Of Magnesia Liq* PO Q6H PRN constipation Metoprolol Succinate 25 mg 08/27/16 09:00 09/01/16 08:47 Toprol Xl Tab* PO 25 mg DAILY LAUREN Administration Morphine Sulfate 2 mg 08/26/16 14:17 Morphine Inj (Syringe)* IV Q2H PRN PAIN Multivitamins/Minerals 1 tab 08/27/16 09:00 09/01/16 08:47 Theragran/Minerals Tab* PO 1 tab DAILY LAUREN Administration Omeprazole 40 mg 08/27/16 09:00 09/01/16 08:47 Prilosec Cap* PO 40 mg DAILY LAUREN Administration Ondansetron HCl 4 mg 08/26/16 14:17 Zofran Tab* PO Q6H PRN NAUSEA Pharmacy Profile Note 1 note 08/26/16 17:00 08/31/16 17:06 Coumadin Daily Reminder* FOLLOW UP 1 note 1700 LAUREN Administration Polyethylene Glycol/Electrolytes 17 gm 08/26/16 14:17 Miralax* PO DAILY PRN Constipation Sucralfate 1 gm 08/26/16 16:00 09/01/16 05:45 Carafate* PO 1 gm 0600,1100,1600,2100 LAUREN Administration
--- NOTE | 2016-09-01 14:16 | DS ---
DISCHARGE SUMMARY: DATE OF ADMISSION: 08/26/16 DATE OF DISCHARGE: 09/01/16 ATTENDING PROVIDER: Dr. Knox (DICTATED BY BASIL BLEVINS) CHIEF COMPLAINTS: 1. Right hip osteoarthritis. 2. Right lower extremity cellulitis. 3. History of bleeding gastric ulcers. 4. Hypertension. 5. Coronary artery disease. 6. Elevated cholesterol. 7. Mcdowell's esophagus. 8. Peripheral vascular disease. DISCHARGE DIAGNOSES: 1. Status post right total hip arthroplasty. 2. Right lower leg cellulitis. 3. History of bleeding ulcers. 4. Hypertension. 5. Coronary artery disease. 6. Elevated cholesterol. 7. Mcdowell's esophagus 8. Peripheral arterial disease. 9. Postoperative delirium. 10. Elevated troponins. PROCEDURE: Right total hip arthroplasty. CONSULTATIONS: 1. Physical therapy. 2. Occupational therapy. 3. Medicine. BRIEF HISTORY: Mr. Ley is a very pleasant 61-year-old gentleman with severe end-stage degenerative osteoarthritis of the right hip, who failed conservative treatment and elected to undergo a right total hip arthroplasty on 08/26/[address] Abi Knox. HOSPITAL COURSE: Mr. Ley was admitted to [facility] on 08/26/16 and underwent an uncomplicated right total hip arthroplasty. Postoperatively, he recovered in the surgical short-stay unit. He was noted on 08/28 to have increased lethargy, complaints of nausea, and was transferred to the ICU for closer monitoring. He was found to have negative brain CT for any acute pathology as well as sinus rhythm on EKG. His troponins were mildly elevated at 0.04. The patient recovered well, stopped usage of narcotics and regained mental clarity. His troponins remained stable and it was felt to be from demand ischemia postoperatively. He was advanced to regular diet without difficulty and his pain was controlled with Tylenol. He was restarted on his home medications. His labs and vital signs remained stable. He was able to weight bear as tolerated on the right lower extremity. He advanced appropriately with physical therapy and occupational therapy. His DVT prophylaxis was managed with Coumadin until he reached a therapeutic INR by postoperative day #6. He was orthopedically and medically stable to be discharged to a alf facility. PHYSICAL EXAMINATION: General: The patient is calm and cooperative, in no acute distress. Resting on side of the bed comfortably. Vital Signs: Temperature 98.4, pulse 94, respirations 17, blood pressure 110/74, pulse ox 110. Right hip incision is clean, dry, and intact with no sign of erythema or drainage. No drainage noted on dressing. Mild erythema in the right lower extremity. Negative Homans' sign bilaterally. Positive dorsiflexion and plantar flexion bilaterally. Posterior tibial pulses are 2+ bilaterally. LABORATORY DATA: On the date of discharge, H and H of 9.9 and 29. INR of 3.36. DISCHARGE MEDICATIONS: 1. Tylenol 650 mg t.i.d. for pain control. 2. Atorvastatin 40 mg p.o. q.h.s. 3. Dulcolax suppository 10 mg daily p.r.n. 4. Colace 100 mg p.o. b.i.d. 5. Ferrous sulfate 325 mg p.o. daily. 6. Flonase 1 spray bilateral nares daily. 7. Hydrochlorothiazide 25 mg p.o. daily. 8. Lactulose 30 mg p.o. q.6 hours p.r.n. 9. Lisinopril 10 mg p.o. daily. 10. Metoprolol 25 mg p.o. daily. 11. Daily multivitamin. 12. Omeprazole 40 mg p.o. daily. 13. Carafate 1 g p.o. b.i.d. 14. Coumadin 2 mg tablets, 1 to 3 tablets p.o. q. 5 p.m. per physician's instructions. 15. Glucosamine chondroitin 2 tablets p.o. b.i.d. 16. Mycolog cream 1 application topically b.i.d. 17. Zofran 4 mg p.o. q. 6 hours p.r.n. CONDITION ON DISCHARGE: Stable. DISCHARGE INSTRUCTIONS: Mr. Ley is a very pleasant 61-year-old gentleman status post right total hip arthroplasty, which was uncomplicated. He is orthopedically and medically stable for discharge to alf facility with rehabilitation. His labs and vital signs are stable. He will restart his home medications. He will hold his Coumadin dose until Thursday night where he will take 2 mg and then have a INR check on and he will have INR draws on Mondays and . He will remain weightbearing as tolerated in the right lower extremity. He will have physical therapy at the facility. He will take Tylenol as needed for pain control and Colace up to 3 times a day for constipation. He is to follow up with Dr. Knox in approximately 7 to 10 days for incision check. He is instructed to go immediately to the ER should he develop chest pain or shortness of breath. Should he develop fever, increasing pain, or redness, he is to call the office immediately. BASIL BLEVINS [id number]/[facility] #: [id number] [facility]
== END 2016-09-01 15:05 | DRG 301 ==
LOC: AA 08:12 → SSU 16:01 → ICU 08-28 19:29 → SSU 08-29 11:30
PROVIDERS: ADMIT Orthopaedic Surgery Adult Reconstructive Orthopaedic Surgery; ATTEND Orthopaedic Surgery Adult Reconstructive Orthopaedic Surgery
PROC: 0SR903A Replacement of Right Hip Joint with Ceramic Synthetic Substitute, Uncemented, Open Approach (ICD-10-PCS; principal; 2016-08-26 11:00)
DX: M16.11 Unilateral primary osteoarthritis, right hip (principal); I95.9 Hypotension, unspecified; F05 Delirium due to known physiological condition; I24.8 Other forms of acute ischemic heart disease; M87.051 Idiopathic aseptic necrosis of right femur; K27.9 Peptic ulcer, site unspecified, unspecified as acute or chronic, without hemorrhage or perforation; L03.116 Cellulitis of left lower limb; Z99.3 Dependence on wheelchair; I25.10 Atherosclerotic heart disease of native coronary artery without angina pectoris; E78.00 Pure hypercholesterolemia, unspecified; K22.70 Barrett's esophagus without dysplasia; I73.9 Peripheral vascular disease, unspecified; I10 Essential (primary) hypertension; K63.5 Polyp of colon; K21.9 Gastro-esophageal reflux disease without esophagitis; E78.5 Hyperlipidemia, unspecified; R00.0 Tachycardia, unspecified; R41.82 Altered mental status, unspecified; R53.83 Other fatigue; R11.0 Nausea; R79.89 Other specified abnormal findings of blood chemistry; D64.9 Anemia, unspecified; F41.9 Anxiety disorder, unspecified; T40.605A Adverse effect of unspecified narcotics, initial encounter; I25.2 Old myocardial infarction; Z95.5 Presence of coronary angioplasty implant and graft; Z83.3 Family history of diabetes mellitus; Z82.49 Family history of ischemic heart disease and other diseases of the circulatory system; Z80.0 Family history of malignant neoplasm of digestive organs; Z80.3 Family history of malignant neoplasm of breast; Z80.8 Family history of malignant neoplasm of other organs or systems; Z79.01 Long term (current) use of anticoagulants
CPT/HCPCS: 36415; 36600; 70450; 72170; 80048; 80053; 81003; 82140; 82803; 84484; 85014; 85018; 85025; 85610; 88304; 88311; 93005; A9270-GY; C1713; C1776; J0690; J1100; J1200; J1650; J1885; J2250; J2310; J2405; J2704; J3010

== ENCOUNTER 2019-02-02 10:10 | Emergency (ER) | payer MEDICARE ==
[2019-02-02 10:20] VITALS: BP 135/79
--- NOTE | 2019-02-02 11:04 | UC ---
Throat Pain/Nasal Nam HPI - HPI Summary HPI Summary: 63 yo with CAD and reflux, here with a 5 day history of nasal congestion and cough productive of clear sputum. No shortness of breath, no fever, mild decrease in appetite. - History of Current Complaint Chief Complaint: UCRespiratory Stated Complaint: SINUS CONGESTION, AND SPITTING PHLEMG Time Seen by Provider: 02/02/19 10:53 Hx Obtained From: Patient, Family/Scenic Artist - here with his sister. Onset/Duration: Gradual Onset, Lasting Days - 5 Severity: Moderate Pain Intensity: 8 Cough: Sputum Appears - clear Associated Signs & Symptoms: Positive: Sinus Discomfort. Negative: Dysphagia, Wheezing, Hoarseness Related History: Seasonal Allergies - Epiglottits Risk Factors Epiglottis Risk Factors: Negative - Allergies/Home Medications Allergies/Adverse Reactions: Allergies Allergy/AdvReac Type Severity Reaction Status Date / Time No Known Allergies Allergy Verified 02/02/19 10:20 PMH/Surg Hx/FS Hx/Imm Hx - Additional Past Medical History Additional PMH: environmental allergies. Cardiovascular History: Cardiac Disease, Hypertension GI/ History: Gastroesophageal Reflux Other History Of: Negative For: Anticoagulant Therapy - Surgical History Surgical History: Yes Surgery Procedure, Year, and Place: [place] WITH STENTS PLACED 1993 - Family History Known Family History: Positive: Non-Contributory - Social History Occupation: Employed Full-time - works at [employer]. Lives: With Family Alcohol Use: None Substance Use Type: None Smoking Status (MU): Never Smoked Tobacco Have You Smoked in the Last Year: No - Immunization History Most Recent Influenza Vaccination: 2016 Most Recent Pneumonia Vaccination: never Review of Systems All Other Systems Reviewed And Are Negative: Yes Constitutional: Positive: Chills, Fatigue Skin: Positive: Negative Eyes: Positive: Negative ENT: Positive: Sinus Congestion Respiratory: Positive: Cough. Negative: Shortness Of Breath Cardiovascular: Negative: Palpitations, Chest Pain Gastrointestinal: Positive: Negative Genitourinary: Positive: Negative Motor: Positive: Negative Neurovascular: Positive: Negative Musculoskeletal: Positive: Negative Neurological: Positive: Negative. Negative: Headache Psychological: Positive: Negative Physical Exam Triage Information Reviewed: Yes Appearance: No Pain Distress, Ill-Appearing - congested, looks mildly fatigued, no respiratory distress. Vital Signs: Initial Vital Signs Temp 98.7 F 02/02/19 10:17 Pulse 56 02/02/19 10:17 Resp 20 02/02/19 10:17 BP 135/79 02/02/19 10:17 Pulse Ox 98 02/02/19 10:17 Eyes: Positive: Conjunctiva Clear ENT: Positive: Pharynx normal, TMs normal Neck: Positive: Supple, Nontender, No Lymphadenopathy Respiratory: Positive: Lungs clear, Normal breath sounds Cardiovascular: Positive: RRR, No Murmur Musculoskeletal Exam: Normal Neurological Exam: Normal Psychological Exam: Normal Skin Exam: Normal Throat Pain/Nasal Course/Dx - Course Course Of Treatment: continue symptomatic treatment of viral respiratory illness. - Differential Dx/Diagnosis Differential Diagnosis/HQI/PQRI: Laryngitis, Sinusitis, URI Provider Diagnosis: URI, acute Discharge ED - Sign-Out/Discharge Documenting (check all that apply): Patient Departure All imaging exams completed and their final reports reviewed: No Studies - Discharge Plan Condition: Stable Disposition: HOME Patient Education Materials: Upper Respiratory Infection (ED) Referrals: Anthony Momin MD [Primary Care Provider] - Additional Instructions: Continue symptomatic treatment of your cold. Clincally, there are no findings to suggest a bacterial illness. Rest at home, increase fluids, and follow up if you develop a fever or shortness of breath. - Billing Disposition and Condition Condition: STABLE Disposition: Home
== END 2019-02-02 11:20 | disposition home or self-care (01) ==
LOC: UCEAST 10:10
DX: J06.9 Acute upper respiratory infection, unspecified (principal); I25.10 Atherosclerotic heart disease of native coronary artery without angina pectoris; I10 Essential (primary) hypertension
CPT/HCPCS: 99211; G0463

== ENCOUNTER 2022-12-05 05:38 | Inpatient (IN) ==
[~2022-12-05 05:38] MED LIST changes: -Buffered Lidocaine 1% SYR 3ML* 3 ML/SYR SYRINGE INTRADERM ONE; -Famotidine IV* 10 MG/ML 2 ML (20 mg) IV ONE; +Naloxone 0.4 mg VIAL 0.4 mg/ml 1 ml VIAL IV PRN; +Ondansetron 4 mg VIAL 2 MG/ML 2 ml VIAL IV PRN; +fentaNYL 100 mcg/2 ml 50 MCG/ML VIAL IV PRN; +oxyCODONE/Acetamin 5/325 mg TAB PO PRN
[2022-12-05] MEDS ORDERED: Buffered Lidocaine 1% SYRIN 1 ml INTRADERM ONE (06:00)
[2022-12-05] MEDS ORDERED: ceFAZolin 2 GM in NS PREMIX 2 GM/100 ML BAG IVPB ONE (06:08)
[2022-12-05] MEDS: Lactated Ringers 1000 ml BAG 1,000 ML IV SCH ×3 (06:26→20:44)
[2022-12-05 06:35] LABS: Rapid COVID-19 Molecular Undetected (Undetected)
[2022-12-05] MEDS ORDERED: Midazolam 2 mg/2 ml VIAL 1 mg/ml 2 ml VIAL (2 mg) ONE (07:05)
[2022-12-05] MEDS ORDERED: Glycopyrrolate IV 0.2 MG/ML 1 ML VIAL ONE (07:56)
[2022-12-05] MEDS ORDERED: Ketamine HCL 50 mg/ml 10 ml VIAL (500 MG) ONE (07:57)
[2022-12-05] MEDS ORDERED: Dexmedetomidine 200 mcg/2 ml 2 ml VIAL (200 mcg) ONE (08:09)
[2022-12-05] MEDS ORDERED: Phenylephrine 40 mcg/mL 10mL (400mcg) SYRINGE ONE (08:36)
[2022-12-05] MEDS ORDERED: Phenylephrine IV 10 MG/ML 1 ml VIAL ONE (08:51)
[2022-12-05] MEDS ORDERED: Lactulose 30 ml UDC PO PRN (09:57)
[2022-12-05] MEDS ORDERED: Ondansetron 4 mg VIAL 2 MG/ML 2 ml VIAL IV PRN (09:57)
[2022-12-05] MEDS ORDERED: Ondansetron ODT 4 mg TAB 4 MG TAB PO PRN (09:57)
[2022-12-05] MEDS ORDERED: Magnesium Hydroxide LIQ 30 ML UDC PO PRN (09:57)
[2022-12-05] MEDS ORDERED: Morphine 2 MG/ML SYRINGE IV PRN (09:57)
[2022-12-05] MEDS ORDERED: Metoclopramide 5 MG/ML VIAL (10 mg) IV PRN (10:03)
[2022-12-05] MEDS ORDERED: Fluticasone NASAL SPRAY 50MCG 16 gm SPRAY BTL BOTH NARES PRN (10:31)
[2022-12-05] MEDS: ceFAZolin 1 GM ADVAN 1 GM in NS 0.9% 50 ML 50 ML IVPB SCH (15:30)
[2022-12-05] MEDS ORDERED: Lactated Ringers 1000 ml BAG 1,000 ML IV ONE (17:51)
[2022-12-05] MEDS: Magnesium Hydroxide LIQ 30 ML UDC PO SCH (20:34)
[2022-12-05] MEDS ORDERED: Aspirin EC 81 mg TAB.EC (enteric coated) PO SCH (21:00)
[2022-12-06] MEDS: ceFAZolin 1 GM ADVAN 1 GM in NS 0.9% 50 ML 50 ML IVPB SCH ×2 (00:14→09:03)
[2022-12-06 08:04] LABS: Hematocrit 33.4 % (38-53); Hemoglobin 12.1 g/dL (13.2-16.3); Platelet Count 107 10^3/uL (150-450)
[2022-12-06 08:20] LABS: Calcium 8.1 mg/dL (8.6-10.3); Creatinine, Serum 1.03 mg/dL (0.67-1.17); Potassium 3.8 mmol/L (3.5-5.0); eGFR CKD-EPI 78.6 (>60)
[2022-12-06] MEDS: Vitamin THERAPEUTIC TAB PO SCH (09:14)
[2022-12-06] MEDS: Magnesium Hydroxide LIQ 30 ML UDC PO SCH ×2 (09:16→21:19)
[2022-12-06] MEDS: Aspirin EC 81 mg TAB.EC (enteric coated) PO SCH (09:16)
[2022-12-07 08:14] LABS: Hematocrit 31.1 % (38-53); Mean Platelet Volume 8.7 fL (7.5-11.2); Platelet Count 107 10^3/uL (150-450)
[2022-12-07] MEDS: Aspirin EC 81 mg TAB.EC (enteric coated) PO SCH (09:56)
[2022-12-07] MEDS: Vitamin THERAPEUTIC TAB PO SCH (09:58)
[2022-12-07] MEDS: Magnesium Hydroxide LIQ 30 ML UDC PO SCH ×2 (09:59→20:45)
[2022-12-08 05:57] LABS: Hematocrit 31.9 % (38-53); Hemoglobin 11.3 g/dL (13.2-16.3); Mean Platelet Volume 8.4 fL (7.5-11.2); Platelet Count 132 10^3/uL (150-450)
[2022-12-08] MEDS: Aspirin EC 81 mg TAB.EC (enteric coated) PO SCH (08:23)
[2022-12-08] MEDS: Vitamin THERAPEUTIC TAB PO SCH (08:23)
[2022-12-08] MEDS: Magnesium Hydroxide LIQ 30 ML UDC PO SCH ×2 (08:28→22:01)
[2022-12-08 14:12] LABS: Rapid COVID-19 Molecular Undetected (Undetected)
[2022-12-09 06:38] LABS: Hematocrit 29.8 % (38-53); Hemoglobin 10.6 g/dL (13.2-16.3); Mean Platelet Volume 8.1 fL (7.5-11.2); Platelet Count 147 10^3/uL (150-450)
[2022-12-09] MEDS: Lactated Ringers 1000 ml BAG 1,000 ML IV SCH ×2 (07:53→07:54)
[2022-12-09] MEDS: Aspirin EC 81 mg TAB.EC (enteric coated) PO SCH (09:53)
[2022-12-09] MEDS: Vitamin THERAPEUTIC TAB PO SCH (09:53)
[2022-12-10 05:57] LABS: Hematocrit 32.2 % (38-53); Hemoglobin 11.2 g/dL (13.2-16.3); Mean Platelet Volume 7.2 fL (7.5-11.2); Platelet Count 168 10^3/uL (150-450)
[2022-12-10] MEDS: Vitamin THERAPEUTIC TAB PO SCH (08:47)
[2022-12-10] MEDS: Aspirin EC 81 mg TAB.EC (enteric coated) PO SCH (08:49)
[2022-12-10 09:41] VITALS: BP 110/65
== END 2022-12-10 11:00 | disposition home or self-care (01) | DRG 470 ==
LOC: OR 05:38 → SSU 05:38
PROVIDERS: ADMIT Physician Assistant Surgical; ATTEND Orthopaedic Surgery Adult Reconstructive Orthopaedic Surgery